=== PATIENT | female | born 1985 | race Caucasian/White ===

== ENCOUNTER 2023-03-28 08:22 | Outpatient (OUT) | payer OTHER, SELFPAY | END 2023-03-28 08:23 | disposition home or self-care (01) | LOC: VC 08:22 | PROVIDERS: Family Provider Family Medicine; PCP Radiology Diagnostic Radiology; Visit Provider Radiology Diagnostic Radiology | DX: I83.813 Varicose veins of bilateral lower extremities with pain (principal) ==

== ENCOUNTER 2023-04-11 07:27 | Outpatient (OUT) | payer OTHER, SELFPAY ==
--- NOTE | 2023-04-11 07:29 | VEIN_ITS ---
Patient: PRESLEY FONG Exam Date: 04/11/2023 : 1985 Gender:F Ordering : DR THIERNO BRAUN M.D. Admission #: [id number] Family : Order #: [id number] CLICK HERE TO VIEW EXAM RADIOLOGY REPORT PROCEDURE: VC EXT VENOUS REFLUX MANDIE LMTD COMPARISON: None. INDICATIONS: I83.813 Pain due to varicose veins of bilateral legs TECHNIQUE: Duplex imaging of the lower extremity to assess the deep and superficial venous system for the presence of deep or superficial venous incompetence and to document the location and severity of disease. The study includes evaluation of the great saphenous vein (GSV), anterior accessory saphenous vein (AASV) and small saphenous vein (SSV). Patient scanned in reverse Trendelenburg and standing. FINDINGS: RIGHT LOWER EXTREMITY: Saphenofemoral Junction Reflux: Yes 8.0mm 3.7 sec GSV: Diam (mm) Reflux/ Time (sec) Proximal Thigh 6.9 Yes 3.2 Mid Thigh 5.9 Yes 2.5 Distal Thigh 6.2 Yes 2.6 Prox Calf 4.0 Yes 2.6 Mid Calf 2.4 Yes 0.7 Saphenopopliteal Junction Reflux: 4.0mm No SSV: Proximal Calf 2.9 No Mid Calf 3.0 No AASV: Proximal Thigh 3.8 Yes 0.8 Mid Thigh 3.2 Yes 0.5 Distal Thigh Thrombi: No acute or chronic thrombus visualized Compressibility: Normal Flow: Normal Preforator: Dist/med calf 3.5mm with 1.1s reflux. Tech Note: Incompetent SFJ and GSV. Patent varicose vein mid/med calf 3.2mm with 0.8s reflux. Patent varicose vein dist/med thigh 3.4mm with 1.4s reflux. Patent varicose vein medial knee 4.6mm with 1.5s reflux. Patent varicose vein prox/med calf 5.2mm with 1.8s reflux. LEFT LOWER EXTREMITY: Saphenofemoral Junction Reflux: Yes 9.4 mm 3.7 sec GSV: Diam (mm) Reflux/Time (sec) Proximal Thigh 7.3 Yes 2.3 Mid Thigh 4.1 Yes 1.4 Distal Thigh 5.2 Yes 2.9 Prox Calf 5.4 Yes 2.0 Mid Calf 2.9 Yes 1.0 Saphenopopliteal Junction Relux: 3.5 mm No SSV: Proximal Calf 2.8 Yes 1.8 Mid Calf 1.9 AASV: Proximal Thigh 6.7 Yes 2.5 Mid Thigh 5.7 Yes 1.9 Distal Thigh Thrombi: No acute or chronic thrombus visualized Compressibility: Normal Flow: Normal Dental Professional: Dist/med calf 2.6mm with 1.9 s reflux. Tech Note: Incompetent SFJ, GSV, and AASV. Patent varicose vein mid/med thigh 3.9mm with 2.1s reflux. Patent varicose vein dist/med thigh 3.3mm with 1.1s reflux. CONCLUSION: 1. Moderate to severe bilateral great saphenous vein venous insufficiency with dilatation and saphenofemoral junction reflux 2. Mild right and moderate left anterior accessory saphenous vein venous insufficiency with dilatation 3. Small bilateral incompetent perforating veins 4. Bilateral incompetent varicose veins Dictated by: Thierno Braun MD on 04/11/2023 at 08:38 Approved by: Thierno Braun MD on 04/11/2023 at 08:40
--- NOTE | 2023-04-11 07:29 | VEIN_ITS ---
Patient: PRESLEY FONG Exam Date: 04/11/2023 : 1985 Gender:F Ordering : DR THIERNO BRAUN M.D. Admission #: [id number] Family : Order #: [id number] CLICK HERE TO VIEW EXAM RADIOLOGY REPORT PROCEDURE: FACILITY [facility] - OFFICE VISIT INITIAL COMPARISON: None. PROGRESS NOTES: 37 year old female who presents with an 18 year history of lower extremity pain swelling and varicose veins. The patient complains of bulging dilated discolored leg veins with swelling and subcutaneous edema. The patient's left side is worse than the right. The patient describes the pain as heaviness dull and itching and rates the pain as 3 on a scale of 1-10. 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 The patient's symptoms are partially relieved by rest, leg elevation, compression stockings and over the counter ibuprofen. The patient denies any signs and symptoms to suggest arterial ischemia. The patient describes a family history significant for varicose veins in both grandmothers, father and sister. Heart problems in both parents. Cancer in a paternal grandmother. The patient has never smoked. Occasional social alcohol use. No illicit drug use. No known drug allergies. Patient's past surgical history is significant for mole removal, oral surgery right foot surgery. . No history of deep venous thrombus or pulmonary embolus. See separate history and physical for medication list. No prior treatment for varicose or spider veins. The patient has worn compression stockings for many years. Rib nursing notes were reviewed. The patient has worn compression stockings for several years. Nursing notes were reviewed. After history and physical exam I discussed at length the pathophysiology of venous hypertension and possible treatments, therapies and strategies available. We discussed at length the importance of elevating the lower extremities above the level of the heart, increased physical activity and compression stocking use. We discussed conservative therapy with compression stockings. Surgical intervention including ligation and stripping and phlebectomy. We discussed intravenous laser ablation, micro foam chemical ablation and injection sclerotherapy at length. Risk benefits and alternatives were discussed Ultrasound venous reflux study performed the same day was discussed at length with the patient. The report demonstrates moderate to severe bilateral great saphenous vein venous insufficiency. Mild right and moderate left anterior accessory saphenous vein venous insufficiency. Mild to moderate left small saphenous vein venous insufficiency. Bilateral incompetent varicose and perforating veins PHYSICAL EXAM: The right leg demonstrates mild scattered varicose, extensive reticular and spider veins. Mild subcutaneous edema of the ankle. No hemosiderin staining. The left leg demonstrates mild scattered varicose, extensive reticular and spider veins. Mild subcutaneous edema of the ankle. No hemosiderin staining. Both thighs, legs and feet were symmetrically warm to the touch. Good posterior tibial and dorsalis pedis pulses were present bilaterally. IMPRESSION: 1. Bilateral great saphenous, anterior accessory saphenous and left small saphenous venous insufficiency with associated dilatation period bilateral saphenofemoral junction reflux 2. Bilateral lower extremity incompetent varicose veins 3. Mild bilateral ankle subcutaneous edema 4. No definite flow significant arterial disease 5. CEAP: C3, Ep, As, Pr PLAN: 1. Endovenous laser ablation r left ght great saphenous vein followed by right great saphenous vein followed by left anterior accessory saphenous vein 2. Micro foam chemical ablation bilateral incompetent branch saphenous varicose veins 3. Bilateral injection sclerotherapy of reticular and spider veins 4. Long-term use of bilateral knee and or 20-30 mm compression stockings 5. Elevated legs and increased physical activity for symptomatic relief Nurse notes, history and physical were reviewed and confirmed, see attached forms. The nurse was present throughout the physical exam and consultation Dictated by: Thierno Braun MD on 04/11/2023 at 12:28 Approved by: Thierno Braun MD on 04/11/2023 at 12:41
== END 2023-04-11 07:28 | disposition home or self-care (01) ==
LOC: VC 07:27
PROVIDERS: Family Provider Family Medicine; PCP Radiology Diagnostic Radiology; Visit Provider Radiology Diagnostic Radiology
DX: I83.813 Varicose veins of bilateral lower extremities with pain (principal)
CPT/HCPCS: 93970; G0463

== ENCOUNTER 2023-07-23 10:09 | Outpatient (OUT) | payer OTHER, SELFPAY ==
[2023-07-29 09:08] LABS: Age Gdln ACOG Testing Note (.); HPV Aptima Negative (Negative); IGP, Aptima HPV, rfx 16/18,45 Note (.)
== END 2023-07-23 10:10 | disposition home or self-care (01) ==
LOC: LAB 07-24 10:14
PROVIDERS: Family Provider Family Medicine; PCP Radiology Diagnostic Radiology; Visit Provider Physician Assistant
DX: Z01.419 Encounter for gynecological examination (general) (routine) without abnormal findings (principal)
CPT/HCPCS: 87624; G0145

== ENCOUNTER 2024-01-12 07:56 | Outpatient (OUT) | payer OTHER, SELFPAY ==
--- NOTE | 2024-01-12 07:59 | MM_ITS ---
Patient Name: PRESLEY FONG MR#: [id number] : 1985 Exam Date: 01/12/2024 Ordering Doctor: DR Tato Harding . RADIOLOGY REPORT PROCEDURE: MM TOMOSYNTHESIS SCREENING BI COMPARISON: MG MAMM SCREEN 3D MANDIE CAD, 01/01/2022. MG MAMM SCREEN 3D MANDIE CAD, 01/10/2023. INDICATIONS: Screening for malignant neoplasm Calculator Name NCI Breast Cancer Risk Assessment Tool 5 Year Breast Cancer Risk 0.60% Lifetime Breast Cancer Risk 11.10% Personal Breast Cancer No Personal Ovarian Cancer No Treatments None Family Cancers Aunt-maternal with breast cancer at age ~38. LOCATION: [facility] BREAST COMPOSITION: Scattered areas fibroglandular density. FINDINGS: DIAGNOSTIC CATEGORY 1--NEGATIVE. NO CHANGE FROM COMPARISON ASSESSMENT. Scattered benign-appearing lymph nodes are present. RIGHT BREAST: No significant suspicious finding. LEFT BREAST: No significant suspicious finding. RECOMMENDATIONS: ROUTINE MAMMOGRAM AND CLINICAL EVALUATION IN 12 MONTHS. PLEASE NOTE: A NORMAL MAMMOGRAM DOES NOT EXCLUDE THE POSSIBILITY OF BREAST CANCER. A CLINICALLY SUSPICIOUS PALPABLE LUMP SHOULD BE BIOPSIED. Dictated by: Thierno Braun MD on 01/13/2024 at 07:37 Approved by: Thierno Braun MD on 01/13/2024 at 07:38
--- OUTSIDE RECORDS SUMMARY | 2024-01-12 07:59 | XMS_ITS | CCD ---
Author Organization [facility] Care Team Providers Care Web Content Executive Name Role Phone Montana Gill MD Primary Care Provider FLAVIO AMAYA Referring Unavailable MONTANA GILL Primary Care Unavailable MONTANA GILL Primary Care Unavailable JASON TOLEDO Referring Unavailable MONTANA GILL Primary Care Unavailable FLAVIO AMAYA Admitting Unavailable FLAVIO AMAYA Attending Unavailable MONTANA GILL Primary Care Unavailable KARASIK ., DR TADEO Admitting Unavailabl e KARASIK ., DR TADEO Attending Unavailabl e MISC, DR RODRIGUEZ Primary Care Unavailable KARASIK ., DR TADEO Consulting Unavailabl e KARASIK ., DR TDAEO Admitting Unavailabl e KARASIK ., DR TADEO Attending Unavailabl e MISC, DR RODRIGUEZ Primary Care Unavailable KARASIK ., DR TADEO Consulting Unavailabl e ZiebJd bae Consulting Unavailable GILL, DR SHEPARD Consulting Unavailable Medications Current Medications Medication Drug Class(es) Dates Sig (Normalized) Sig (Original) calcium chloride 0.0014 meq/ml / potassium chloride 0.004 meq/ml / sodium chloride 0.103 meq/ml / sodium lactate 0.028 meq/ml injectable solution (1 source) Start: 05-27-2022 lactated ringers infusion escitalopram 10 mg oral tablet (3 sources) Serotonin Reuptake Inhibitor take 1 tablet by mouth once daily escitalopram (LEXAPRO) 10 MG tablet Take 10 mg by mouth daily 0 Active Norethin-Eth Estrad Triphasic (NORTREL PO) (3 sources) Norethin-Eth Est rad Triphasic (NORTREL PO) Take by mouth 0 Active 5 ml sodium chloride 9 mg/ml injection (2 sources) Start: 05-27-2022 sodium chloride flush 0.9 % injection 5-40 mL Start: 05-27-2022 sodium chlorid e flush 0.9 % injection 5-40 mL Completed/Discontinued Medications Medication Drug Class(es) Dates Sig (Normalized) Sig (Original) acetaminophen 325 mg / HYDROcodone bitartrate 5 mg oral tablet (1 source) Opioid Agonist Start: 05-27-2022 End: 05-27-2022 HYDROcodone-acetam inophen (NORCO) 5-325 MG per tablet 2 tablet Start: 05-27-2022 End: 05-27-2022 HYDROcodone-acetaminophen (N ORCO) 5-325 MG per tablet 2 tablet ceFAZolin 2000 mg injection (1 source) Cephalosporin Antibacterial Start: 05-27-2022 End: 05-27-2022 ceFAZolin (ANCEF) 2000 mg in dextrose 3 % 50 mL IVPB (duplex) traMADol hydrochloride 50 mg oral tablet (2 sources) Opioid Agonist Start: 05-23-2022 End: 05-26-2022 traMADol (ULTRAM) 50 MG tablet Indications: Closed fracture of right foot, initial encounter Take 1 tablet by mouth every 6 hours as needed for Pain for up to 3 days. Intended supply: 5 days. Take lowest dose possible to manage pain 12 tablet 0 05/23/2022 05/24/2022 Discontinued (Therapy completed) Problems Active Problems Problem Classification Problem Date Documented Da te Episodic/Chronic Fracture of lower limb (1 source) Closed fracture of right foot; Translations: [Unspecified fracture of right foot, initial encounter for closed fracture] Episodic Other screening for suspected conditions (not mental disorders or infectious disease) (8 sources) Encounter for screening mammogram for malignant neoplasm of breast; Translations: [Encounter for screening for malignant neoplasm of cervix] Onset: 05-10-2022 Episodic Residual codes; unclassified (1 source) Family history of malignant neoplasm of breast; Translations: [FAMILY HX MALIG NEOPLASM OF BREAST] Onset: 01-19-2023 Episodic Past or Other Problems Problem Classification Problem Date Documented Date Episodic/Chronic Immunizations and screening for infectious disease (1 source) Encounter for screening for human papillomavirus (HPV); Translations: [ENC SCREENING HUMAN PAPILLOMAVIRUS] Onset: 05-12-2022 Episodic Results Test Name Value Interpretation Reference Range Facility MG MAMM SCREEN 3D MANDIE CADon 01-10-2023 MG MAMM SCREEN 3D MANDIE CAD Patient: PRESLEY FONG Exam Date: 01/10/2023 : 1985 Gender:F Ordering : DR SHWETHA VILLA . Admission #: [id number] Family : Order #: [id number] CLICK HERE TO VIEW EXAM RADIOLOGY REPORT PROCEDURE: MAMMOGRAM SCREENING 3D BILATERAL CAD COMPARISON: MG MAMM SCREEN MANDIE W CAD, 11/01/2020. MG MAMM SCREEN 3D MANDIE CAD, 01/01/2022. INDICATIONS: Screening mammography Calculator Name NCI Breast Cancer Risk Assessment Tool 5 Year Breast Cancer Risk 0.60% Lifetime Breast Cancer Risk 11.10% Personal Breast Cancer No Personal Ovarian Cancer No Treatments None Family Cancers Aunt-maternal with breast cancer at age 38. LOCATION: [facility] BREAST COMPOSITION: Scattered areas fibroglandular density. FINDINGS: DIAGNOSTIC CATEGORY 1--NEGATIVE. RIGHT BREAST: No significant suspicious finding. No significant change has occurred. LEFT BREAST: No significant suspicious finding. No significant change has occurred. RECOMMENDATIONS: ROUTINE MAMMOGRAM AND CLINICAL EVALUATION IN 12 MONTHS. PLEASE NOTE: A NORMAL MAMMOGRAM DOES NOT EXCLUDE THE POSSIBILITY OF BREAST CANCER. A CLINICALLY SUSPICIOUS PALPABLE LUMP SHOULD BE BIOPSIED. Dictated by: Jd Garcia M.D. on 01/10/2023 at 14:53 Approved by: Jd Garcia M.D. on 01/10/2023 at 14:55 Normal [facility] FL LESS THAN 1 HOURon 2021 FL LESS THAN 1 HOUR EXAMINATION: FL LESS THAN 1 HOUR HISTORY: Reason for exam:->ORIF RIGHT FIFTH METATARSAL COMPARISON: None. FLUOROSCOPY TIME: Fluoro time measures 8 seconds and 2 spot images were obtained. TECHNIQUE: Fluoroscopy with spot films. FINDINGS: Images demonstrate a percutaneous pin placed through the fifth metatarsal with 2 cerclage wires around the fifth metatarsal shaft. Anatomic alignment. IMPRESSION: Fluoroscopy during internal fixation right fifth metatarsal. Interpreted by: Edgardo Han Jr., MD Signed by: Edgardo Han Jr., MD 05/27/22 Final result Normal [facility] Fluoroscopy during internal fixation right fifth metatarsal. [facility] RIS CONSOLIDATED EXAMINATION: FL LESS THAN 1 HOUR HISTORY: Reason for exam:->ORIF RIGHT FIFTH METATARSAL COMPARISON: None. FLUOROSCOPY TIME: Fluoro time measures 8 seconds and 2 spot images were obtained. TECHNIQUE: Fluoroscopy with spot films. FINDINGS: Images demonstrate a percutaneous pin placed through the fifth metatarsal with 2 cerclage wires around the fifth metatarsal shaft. Anatomic alignment. [facility] Edgardo Han Jr., MD - 05/27/2022 EXAMINATION: FL LESS THAN 1 HOUR HISTORY: Reason for exam:->ORIF RIGHT FIFTH METATARSAL COMPARISON: None. FLUOROSCOPY TIME: Fluoro time measures 8 seconds and 2 spot images were obtained. TECHNIQUE: Fluoroscopy with spot films. FINDINGS: Images demonstrate a percutaneous pin placed through the fifth metatarsal with 2 cerclage wires around the fifth metatarsal shaft. Anatomic alignment. IMPRESSION: Fluoroscopy during internal fixation right fifth metatarsal. On[employer] Phone: Radiology Study observation (narrative) OnSwipe Phone: [place] LESS THAN 1 HOUROrdered B y: Edgardo Han on 05-27-2022 [employer] Phone: HCG, ,Urineon 05-27 Beta HCG ( test) Ql (U) Negative Normal NEG [facility] Comment on above: Performed By: #### U HCG #### [facility] [address] [place] [address] Customer Acquisition Manager: Thierno Linton MD , Urineon 2 Beta HCG ( test) Ql (U) Negative NEGATIVE [facility] [employer] [id number] 05-27-2022 SARS-CoV-2 (COVID-19) RNA GERARDO+probe Ql (Unsp spec) Not detected Normal NOTDET [facility] Comment on above: Result Comment: Rapid NAAT: The specimen is NEGATIVE for SARS-CoV-2, the novel coronavirus associated with COVID-19. The ID NOW COVID-19 assay is designed to detect the virus that causes COVID-19 in patients with signs and symptoms of infection who are suspected of COVID-19. An individual without symptoms of COVID-19 and who is not shedding SARS-CoV-2 virus would expect to have a negative (not detected) result in this assay. Negative results should be treated as presumptive and, if inconsistent with clinical signs and symptoms or necessary for patient management, should be tested with an alternative molecular assay. Negative results do not preclude SARS-CoV-2 infection and should not be used as the sole basis for patient management decisions. Fact sheet for Healthcare Providers: https://www.fda.gov/media/100921/download Fact sheet for Patients: https://www.fda.gov/media/585438/download Methodology: Isothermal Nucleic Acid Amplification Performed By: #### C OVRB #### [facility] [address] [place] [address] Customer Acquisition Manager: Thierno Linton MD Basic Metabolic Panelon 05-06 Anion gap [Moles/Vol] 10 mmol/L 9 - 17 mmol/L [facility] Calcium [Mass/Vol] 10.0 mg/dL 8.6 - 10. 4 mg/dL [facility] Chloride [Moles/Vol] 103 mmol/L 98 - 107 mmol/L [facility] CO2 [Moles/Vol] 25 mmol/L 20 - 31 mmol/L [facility] Creatinine [Mass/Vol] 0.64 mg/dL 0.5 - 0.9 mg/dL [facility] GFR >60 60 - PINF mL/min [facility] GFR Non- >60 60 - PINF mL/min [facility] Glucose [Mass/Vol] 92 mg/dL 70 - 99 mg/dL [facility] Potassium [Moles/Vol] 4.8 mmol/L 3.7 - 5.3 mmol/L [facility] Sodium [Moles/Vol] 138 mmol/L 135 - 144 mmol/L [facility] Urea nitrogen (BldV) [Mass/Vol] 13 mg/dL 6 - 20 mg/dL [facility] Urea nitrogen/Creatinine (Bld) [Mass ratio] 20 9 - 20 [facility] Basic Metabolic Profon 05-24 (cont.) Normal [facility] Comment on above: Result Comment: Aver age GFR for 30-39 years old: 107 mL/min/1.73sq m Chronic Kidney Disease: <60 mL/min/1.73sq m Kidney failure: <15 mL/min/1.73sq m eGFR calculated using average adult body mass. Additional eGFR calculator available at: http://www.[employer]/multiple_crcl_2012.htm Performed By: #### B SHARDA CDP, IPF #### [facility] [address] [place], [place] [id number] Customer Acquisition Manager: Thierno Linton MD Anion gap [Moles/Vol] 10 mmol/L Normal 9-17 [facility] Comment on above: Performed By: #### B SHARDA, CDP, IPF #### [facility] [address] [place], [place] [id number] Customer Acquisition Manager: Thierno Linton MD BUN/CRE Ratio 20 Normal 9-20 [facility] Comment on above: Performed By: #### B JACINDA ROBIN, IPF #### [facility] [address] [place] [address] [address] [place], [place] [id number] Customer Acquisition Manager: Thierno Linton MD Calcium [Mass/Vol] 10.0 mg/dL Normal 8.6-10.4 [facility] Comment on above: Performed By: #### B JACINDA ROBIN, IPF #### [address] [place], [place] [phone] Customer Acquisition Manager: Thierno Linton MD Chloride [Moles/Vol] 103 mmol/L Normal 98-107 [facility] Comment on above: Performed By: #### B SHARDA, CDP, IPF #### [facility] [address] [place], [place] [address] Customer Acquisition Manager: Thierno Linton MD CO2 [Moles/Vol] 25 mmol/L Normal 20-31 [facility] Comment on above: Performed By: #### B SHARDA, CDP, IPF #### [facility] [address] [place] [address] Customer Acquisition Manager: Thierno Linton MD Creatinine [Mass/Vol] 0.64 mg/dL Normal 0.50-0.90 [facility] Comment on above: Performed By: #### B SHARDA, CDP, IPF #### [facility] [address] [place], [place] [id number] Customer Acquisition Manager: Thierno Linton MD GFR, Amer >60 Normal >60 [facility] Comment on above: Performed By: #### B MP, CDP, IPF #### [facility] [address] [place], [place] [phone] Customer Acquisition Manager: Thierno Linton MD GFR,non Amer >60 Normal >60 [facility] Comment on above: Performed By: #### B SHARDA CDP, IPF #### [facility] [address] [place], [place] [address] Customer Acquisition Manager: Thierno Linton MD Glucose [Mass/Vol] 92 mg/dL Normal 70-99 [facility] Comment on above: Performed By: #### B SHARDA CDP, IPF #### [facility] [address] [place], [place] [phone] Customer Acquisition Manager: Thierno Linton MD Potassium [Moles/Vol] 4.8 mmol/L Normal 3.7-5.3 [facility] Comment on above: Performed By: #### B JACINDA ROBIN, IPF #### [facility] [address] [place], [place] [phone] Customer Acquisition Manager: Thierno Linton MD Sodium [Moles/Vol] 138 mmol/L Normal 135-144 [facility] Comment on above: Performed By: #### B SHARDA CDP, IPF #### [facility] [address] [place] [address] Customer Acquisition Manager: Thierno Linton MD Staging: Normal [facility] Comment on above: Result Comment: Stag e 1: Some kidney damage normal GFR Stage 2: Mild kidney damage GFR 60-89 Stage 3: Moderate kidney damage GFR 30-59 Stage 4: Severe kidney damage GFR 15-29 Stage 5: Severe kidney damage GFR <15 ESRD - chronic treatment by dialysis or transplant Performed By: #### B JACINDA ROBIN, IPF #### [facility] [address] [place] [address] Customer Acquisition Manager: Thierno Linton MD Urea nitrogen [Mass/Vol] 13 mg/dL Normal 6-20 [facility] Comment on above: Performed By: #### B JACINDA ROBIN, IPF #### [facility] [address] [place] [address] Customer Acquisition Manager: Thierno Linton MD CBC with Auto Differentialon 05-24-2022 Absolute Eos # 0.11 [facility] Absolute Immature Granulocyte 0.00 [facility] Absolute Lymph # 1.54 [facility] Absolute [place] # 0.51 [facility] Basophils (Bld) [#/Vol] 0.06 10*3/uL [facility] Basophils/100 WBC (Bld) 1 % 0 - 2 % [facility] Eosinophils/100 WBC (Bld) 2 % 1 - 4 % [facility] Hematocrit (Bld) [Volume fraction] 44.4 % 36.3 - 47.1 % [facility] Hemoglobin (Bld) [Mass/Vol] 14.3 g/dL 11.9 - 15.1 g/dL [facility] Immature granulocytes/100 WBC (Bld) 0 % 0 [facility] Lymphocytes/100 WBC (Bld) 27 % 24 - 43 % [facility] MCH (RBC) [Entitic mass] 30.3 pg 25.2 - 33.5 pg [facility] MCHC (RBC) [Mass/Vol] 32.2 g/dL 28.4 - 34.8 g/dL [facility] MCV (RBC) [Entitic vol] 94.1 fL 82.6 - 102.9 fL [facility] Monocytes/100 WBC (Bld) 9 % 3 - 12 % [facility] Morphology Nick (Bld) [Interp] Platelet scan shows Normal Platelets [facility] NRBC Automated 0.0 0.0 per 100 WBC [facility] Platelet distribution width (Bld) [Ratio] 12.2 % 11.8 - 14.4 % [facility] Platelets (Bld) [#/Vol] See Reflexed IPF Result [facility] RBC (Bld) [#/Vol] 4.72 10*6/uL 3.95 - 5.1 1 m/uL [facility] Segmented neutrophils/100 WBC (Bld) 61 % 36 - 65 % [facility] Segs Absolute 3.48 [facility] WBC (Bld) [#/Vol] 5.7 10*3/uL [facility] CBC with Diffon 05-24-2022 Abs. Basophil 0.06 k/uL Normal 0.0-0.2 [facility] Comment on above: Performed By: #### B JACINDA ROBIN, IPF #### [facility] [address] [place], [facility]83 Customer Acquisition Manager: Thierno Linton MD Abs.Imm.Granulocyte 0.00 k/uL Normal 0.00-0.30 [facility] Comment on above: Performed By: #### B SHARDA CDP, IPF #### [address] [place], [facility]83 Customer Acquisition Manager: Thierno Linton MD Abs.Neutrophil (Seg) 3.48 k/uL Normal 1.50-8.10 [facility] Comment on above: Performed By: #### B MP, CDP, IPF #### [facility] [address] [place], [place] [phone] Customer Acquisition Manager: Thierno Linton MD Basophils/100 WBC (Bld) 1 % Normal 0-2 [facility] Comment on above: Performed By: #### B MP, CDP, IPF #### [facility] [address] [place] [address] Customer Acquisition Manager: Thierno Linton MD Eosinophils (Bld) [#/Vol] 0.11 10*3/uL Normal 0.00-0.44 [facility] Comment on above: Performed By: #### B MP, CDP, IPF #### [facility] [address] [place], [place] [phone] Customer Acquisition Manager: Thierno Linton MD Eosinophils/100 WBC (Bld) 2 % Normal 1-4 [facility] Comment on above: Performed By: #### B MP, CDP, IPF #### [facility] [address] [place], [place] [phone] Customer Acquisition Manager: Thierno Linton MD Immature granulocytes/100 WBC (Bld) 0 % Normal 0 [facility] Comment on above: Performed By: #### B MP, CDP, IPF #### [facility] [address] [place], [place] [phone] Customer Acquisition Manager: Thierno Linton MD Lymphocytes (Bld) [#/Vol] 1.54 10*3/uL Normal 1.10-3.70 [facility] Comment on above: Performed By: #### B SHARDA, CDP, IPF #### [facility] [address] [place], [place] [phone] Customer Acquisition Manager: Thierno Linton MD Lymphocytes/100 WBC (Bld) 27 % Normal 24-43 [facility] Comment on above: Performed By: #### B SHARDA, CDP, IPF #### [facility] [address] [place], [place] [phone] Customer Acquisition Manager: Thierno Linton MD Monocytes (Bld) [#/Vol] 0.51 10*3/uL Normal 0.10-1.20 [facility] Comment on above: Performed By: #### B MP, CDP, IPF #### [facility] [address] [place] [address] Customer Acquisition Manager: Thierno Linton MD Monocytes/100 WBC (Bld) 9 % Normal 3-12 [facility] Comment on above: Performed By: #### B MP, CDP, IPF #### [facility] [address] [place], [place] [phone] Customer Acquisition Manager: Thierno Linton MD Morphology Nick (Bld) [Interp] Platelet scan shows Normal Platelets Normal [facility] Comment on above: Performed By: #### B MP, CDP, IPF #### [facility] [address] [place], [facility]83 Customer Acquisition Manager: Thierno Linton MD Neutrophil (Seg) 61 % Normal 36-65 [facility] Comment on above: Performed By: #### B SHARDA, CDP, IPF #### [facility] [address] [place], [facility]83 Customer Acquisition Manager: Thierno Linton MD Erythrocyte distribution width (RBC) [Ratio] 12.2 % Normal 11.8-14.4 [facility] Comment on above: Performed By: #### B SHARDA CDP, IPF #### [facility] [address] [place], [facility]83 Customer Acquisition Manager: Thierno Linton MD Hematocrit (Bld) [Volume fraction] 44.4 % Normal 36.3-47.1 [facility] Comment on above: Performed By: #### B SHARDA CDP, IPF #### [facility] [address] [place], [facility]83 Customer Acquisition Manager: Thierno Linton MD Hemoglobin (Bld) [Mass/Vol] 14.3 g/dL Normal 11.9-15.1 [facility] Comment on above: Performed By: #### B MP, CDP, IPF #### [facility] [address] [place] [address] Customer Acquisition Manager: Thierno Linton MD MCH (RBC) [Entitic mass] 30.3 pg Normal 25.2-33.5 [facility] Comment on above: Performed By: #### B MP, CDP, IPF #### [facility] [address] [place] [address] Customer Acquisition Manager: Thierno Linton MD MCHC (RBC) [Mass/Vol] 32.2 g/dL Normal 28.4-34.8 [facility] Comment on above: Performed By: #### B MP, CDP, IPF #### [facility] [address] [place], [place] [phone] Customer Acquisition Manager: Thierno Linton MD MCV (RBC) [Entitic vol] 94.1 fL Normal 82.6-102.9 [facility] Comment on above: Performed By: #### B MP, CDP, IPF #### [address] [place], [place] [address] Customer Acquisition Manager: Thierno Linton MD NRBC Automated 0.0 per 100 WBC Normal 0.0 [facility] Comment on above: Performed By: #### B MP, CDP, IPF #### [address] [place], [place] [phone] Customer Acquisition Manager: Thierno Linton MD Platelet Count See Reflexed IPF Result Normal 138-453 [facility] Comment on above: Performed By: #### B MP, CDP, IPF #### [address] [place], [place] [phone] Customer Acquisition Manager: Thierno Linton MD RBC (Bld) [#/Vol] 4.72 10*6/uL Normal 3.95-5.11 [facility] Comment on above: Performed By: #### B MP, CDP, IPF #### [facility] [address] [place] [address] Customer Acquisition Manager: Thierno Linton MD WBC (Bld) [#/Vol] 5.7 10*3/uL Normal 3.5-11.3 [facility] Comment on above: Performed By: #### B MP, CDP, IPF #### [address] [place] [address] Customer Acquisition Manager: Thierno Linton MD Immature Platelet Fractionon 05-24-2022 Platelet, Fluorescence 227 [facility] Platelet, Immature Fraction 7.5 % 1.1 - 10.3 % [facility] Laboratory - Chemistry and C hemistry - challengeon 05-24-2022 GFR/1.73 sq M.predicted MDRD (S/P/Bld) [Vol rate/Area] [facility] Comment on above: Average GFR for 30-3 9 years old: 107 mL/min/1.73sq m Chronic Kidney Disease: <60 mL/min/1.73sq m Kidney failure: <15 mL/min/1.73sq m eGFR calculated using average adult body mass. Additional eGFR calculator available at: http://www.[employer]/multiple_crcl_2012.htm Stage 1: Some kidney damage normal GFR Stage 2: Mild kidney damage GFR 60-89 Stage 3: Moderate kidney damage GFR 30-59 Stage 4: Severe kidney damage GFR 15-29 Stage 5: Severe kidney damage GFR <15 ESRD - chronic treatment by dialysis or transplant PLT, Immature Fract.on 05-24 Platelet, Fluoresc. 227 k/uL Normal 138-453 [facility] Comment on above: Performed By: #### B JACINDA ROBIN, IPF #### [facility] [address] [place] [address] [place] [address] Customer Acquisition Manager: Thierno Linton MD PLT, Immature Fract. 7.5 % Normal 1.1-10.3 [facility] Comment on above: Performed By: #### B JACINDA ROBIN, IPF #### [facility] [address] [place] [address] Customer Acquisition Manager: Thierno Linton MD XR ANKLE RIGHT (MIN 3 VIEWS) on 05-23-2022 XR ANKLE RIGHT (MIN 3 VIEWS) EXAMINATION: THREE XRAY VIEWS OF THE RIGHT ANKLE 05/23/2022 10:16 am COMPARISON: None. HISTORY: ORDERING SYSTEM PROVIDED HISTORY: fall TECHNOLOGIST PROVIDED HISTORY: fall FINDINGS: There is no acute osseous abnormality. The joint spaces are maintained. The surrounding soft tissues are unremarkable. IMPRESSION: No acute osseous or soft tissue abnormality. Interpreted by: Jagdish Cm MD Signed by: Jagdish Cm MD 05/23/22 Final result Normal [facility] No acute osseous or soft tissue abnormality. [facility] CONSOLIDATED EXAMINATION: THREE XRAY VIEWS OF THE RIGHT ANKLE 05/23/2022 10:16 am COMPARISON: None. HISTORY: ORDERING SYSTEM PROVIDED HISTORY: fall TECHNOLOGIST PROVIDED HISTORY: fall FINDINGS: There is no acute osseous abnormality. The joint spaces are maintained. The surrounding soft tissues are unremarkable. [facility] Jagdish Cm MD - 05/23/2022 EXAMINATION: THREE XRAY VIEWS OF THE RIGHT ANKLE 05/23/2022 10:16 am COMPARISON: None. HISTORY: ORDERING SYSTEM PROVIDED HISTORY: fall TECHNOLOGIST PROVIDED HISTORY: fall FINDINGS: There is no acute osseous abnormality. The joint spaces are maintained. The surrounding soft tissues are unremarkable. IMPRESSION: No acute osseous or soft tissue abnormality. [employer] Phone: Radiology Study observation (narrative) [employer] Phone: XR ANKLE RIGHT (MIN 3 VIEWS) Ordered By: Jagdish Cm on 05-23-2022 [employer] Phone: XR FOOT RIGHT (MIN 3 VIEWS)o n 05-23-2022 XR FOOT RIGHT (MIN 3 VIEWS) EXAMINATION: THREE XRAY VIEWS OF THE RIGHT FOOT 05/23/2022 10:16 am COMPARISON: None. HISTORY: ORDERING SYSTEM PROVIDED HISTORY: fall TECHNOLOGIST PROVIDED HISTORY: fall FINDINGS: There is an oblique fracture of the 5th metatarsal. The joint spaces are maintained. There is diffuse soft tissue swelling. IMPRESSION: Oblique fracture of the 5th metatarsal. Interpreted by: Jagdish Cm MD Signed by: Jagdish Cm MD 05/23/22 Final result Normal [facility] Oblique fracture of the 5th metatarsal. [facility] EXAMINATION: THREE XRAY VIEWS OF THE RIGHT FOOT 05/23/2022 10:16 am COMPARISON: None. HISTORY: ORDERING SYSTEM PROVIDED HISTORY: fall TECHNOLOGIST PROVIDED HISTORY: fall FINDINGS: There is an oblique fracture of the 5th metatarsal. The joint spaces are maintained. There is diffuse soft tissue swelling. PN Jagdish Holland MD - 05/23/2022 EXAMINATION: THREE XRAY VIEWS OF THE RIGHT FOOT 05/23/2022 10:16 am COMPARISON: None. HISTORY: ORDERING SYSTEM PROVIDED HISTORY: fall TECHNOLOGIST PROVIDED HISTORY: fall FINDINGS: There is an oblique fracture of the 5th metatarsal. The joint spaces are maintained. There is diffuse soft tissue swelling. IMPRESSION: Oblique fracture of the 5th metatarsal. On[employer] Phone: [employer] Phone: Radiology Study observation (narrative) [employer] Phone: PAP ACOG PANEL 2: 30 to 65on 05-14-2022 . . Normal [facility] Comment on above: Result Comment: Perf ormed at: WB Performed By: #### [id number] #### [facility] [address] [place] [address] Dr. Mara Gordon Age Gdln ACOG Testing 30-65 Normal [facility] Comment on above: Performed By: #### [id number] #### [facility] [address] [address] [address] Mara Gordon DIAGNOSIS: Comment Normal [facility] Comment on above: Result Comment: NEGA TIVE FOR INTRAEPITHELIAL LESION OR MALIGNANCY. Performed at: WB Performed By: #### [id number] #### [facility] [address] [address] [address] Mara Gordon HPV Aptima Negative Normal Negative [facility] Comment on above: Result Comment: This nucleic acid amplification test detects fourteen high-risk HPV types (16,18,31,33,35,39,45,51,52,56,58,59,66,68) without differentiation. Performed at: =G Performed By: #### [id number] #### [facility] [address] [address] [address] Mara Gordon Methodology: Comment Normal [facility] Comment on above: Result Comment: This liquid based ThinPrep(R) pap test was screened with the use of an image guided system. Performed at: WB Performed By: #### [id number] #### [facility] [address] [place] [address] Dr. Mara Gordon Note: Comment Normal [facility] Comment on above: Result Comment: The Pap smear is a screening test designed to aid in the detection of premalignant and malignant conditions of the uterine cervix. It is not a diagnostic procedure and should not be used as the sole means of detecting cervical cancer. Both false-positive and false-negative reports do occur. . Performed at: WB Performed By: #### [id number] #### [facility] [address] [place] [address] Dr. Mara Gordon Performed by: Comment Normal [facility] Comment on above: Result Comment: Sunita Cheatham Circular Saw Operator (ASCP) Performed at: WB Performed By: #### [id number] #### [facility] [address] [place] [address] Dr. Mara Gordon Specimen adequacy: Comment Normal [facility] Comment on above: Result Comment: Sati sfactory for evaluation. Endocervical and/or squamous metaplastic cells (endocervical component) are present. Performed at: WB Performed By: #### [id number] #### [facility] [address] [place] [address] Dr. Mara Gordon Vital Signs Date Time Vital Sign Value Performing Clinician Faci lity 05-27-2022 18:15-0400 Diastolic blood pressure 75 mm[Hg] Flavio Amaya DPM Work Phone: [facility] 05-27-2022 18:15-0400 Heart rate 78 /min Flavio Amaya DPM Work Phone: [facility] 05-27-2022 18:15-0400 Respiratory rate 8 /min Flavio Amaya DPM Work Phone: [facility] 05-27-2022 18:15-0400 SaO2% (BldA) [Mass fraction] 93 % Flavio Amaya DPM Work Phone: [facility] 05-27-2022 18:15-0400 Systolic blood pressure 126 mm[Hg] Flavio Amaya DPM Work Phone: [facility] 05-27-2022 17:45-0400 Body temperature 98.01 [degF] Flavio Amaya DPM Work Phone: [facility] [place] 05-27-2022 14:38-0400 Body height 170.2 cm Flavio Amaya DPM Work Phone: [facility] [place] 05-27-2022 14:38-0400 Body mass index (BMI) [Ratio] 33.36 kg/m2 Flavio Amaya DPM Work Phone: [facility] [place] 05-27-2022 14:38-0400 Body weight 96.62 kg Flavio Amaya DPM Work Phone: [facility] [place] 05-23-2022 10:02-0400 Body height 170.2 cm Montana Gill MD Work Phone: [facility] [place] 05-23-2022 10:02-0400 Body mass index (BMI) [Ratio] 31.32 kg/m2 Montana Gill MD Work Phone: [facility] [place] 05-23-2022 10:02-0400 Body temperature 96.8 [degF] Montana Gill MD Work Phone: [facility] [place] 05-23-2022 10:02-0400 Body weight 90.72 kg Montana Gill MD Work Phone: [facility] [place] 05-23-2022 10:02-0400 Diastolic blood pressure 99 mm[Hg] Montana Gill MD Work Phone: [facility] [place] 05-23-2022 10:02-0400 Heart rate 83 /min Montana Gill MD Work Phone: [facility] [place] 05-23-2022 10:02-0400 Respiratory rate 16 /min Montana Gill MD Work Phone: [facility] 05-23-2022 10:02-0400 SaO2% (BldA) [Mass fraction] 100 % Montana Gill MD Work Phone: [facility] 05-23-2022 10:02-0400 Systolic blood pressure 143 mm[Hg] Montana Gill MD Work Phone: [facility] Encounters Encounter Date Encounter Type Care Provider Facility Start: 01-10-2023 End: 01-11-[address] SHWETHA VILLA . Facility: Start: 05-27-2022 End: 05-27-2022 [facility] Start: 05-27-2022 End: 05-27-2022 Subsequent hospital visit by physician Flavio Amaya DPM Work Phone: [facility] Start: 05-27-2022 End: 05-27-2022 ambulatory JASON TOLEDO [facility] Start: 05-24-2022 End: 05-25-2022 ambulatory FLAVIO AMAYA [facility] Start: 05-24-2022 End: 05-24-2022 Subsequent hospital visit by physician Montana Gill MD Work Phone: [facility] Start: 05-23-2022 End: 05-23-2022 Emergency department patient visit [place] [facility] Start: 05-23-2022 End: 05-23-2022 Emergency department patient visit Montana Gill MD Work Phone: [facility] Comment on above: Closed fracture of r ight foot, initial encounter (Primary Dx) Start: 05-10-2022 End: 05-10-[address] SHWETHA VILLA . Facility: Procedures Date Procedure Procedure Detail Performing Clinician Start: 05-27-2022 Fluoroscopy up to 1 hour physician/qhp time Flavio Amaya DPM Work Phone: Start: 05-27-2022 Urine test visual color cmprsn meths Flavio Amaya DPM Work Phone: Start: 05-24-2022 Basic metabolic pane l calcium total Flavio Amaya DPM Work Phone: Start: 05-24-2022 IMMATURE PLATELET FRACTION Flavio Amaya DPM Work Phone: Start: 05-23-2022 SPLINT APPLICATION Tiff any N Jin PIERCING ARTIST - CORRECTIVE AND MANUAL ARTS THERAPIST Work Phone: Start: 05-23-2022 End: 05-23-2022 Radex ankle complete minimum 3 views Sonya Merchant MD Work Phone: Plan of Treatment Date Care Activity Detail Author Start: 2022 Influenza vaccination Flu vaccine (# 1) [facility] Start: 05-27-2022 End: 05-27-2022 Admission to same day surgery center 05/27/2022 Surgery IP Unit Flavio Amaya, DPM [address] [place] [address] ORIF OF FIFTH METATSRSAL FRACTURE RIGHT FOOT [facility] Comment on above: ORIF OF FIFTH METATS RSAL FRACTURE RIGHT FOOT Start: 05-27-2022 End: 05-27-2022 Open treatment metatarsal fracture each [facility] Start: 05-27-2022 Subsequent hospital visit by physician 05/27/2022 Hospital Encounter IP Unit Flavio Amaya, MARCYM [address] [place] [address] [facility] Start: 05-27-2022 End: 05-27-2022 Patient encounter procedure 05/27/2022 Appointment Pre-Admission Testing [facility] PRE [facility]MIT Start: 2018 Diabetes screen Diabetes screen [facility] Start: 2013 Screening for malign ant neoplasm of cervix [facility] Start: 2004 Screening for malign ant neoplasm of cervix Pap smear [facility] Start: 2002 DTaP/Tdap/Td vaccine (1 - Tdap) DTaP/Tdap/Td vaccine (1 - Tdap) [facility] Start: 2001 Hepatitis C screening Hepatitis C sc reen [facility] Start: 1998 HIV screening HIV screen [facility] [employer] Start: 1995 Depression Screen Depression Screen [facility] Start: 1984 Varicella vaccine (1 of 2 - 2-dose childhood series) Varicella vaccine (1 of 2 - 2-dose childhood series) [facility] [place] Start: 1983 COVID-19 Vaccine (#1) COVID-19 Vacci ne (#1) [facility] [place] Oxygen therapy [[facility] Data Set] Initiate Oxygen Therapy Protocol Respiratory Care Routine As Needed until discontinued starting 05/27/2022 On[employer] Phone: Comment on above: As Needed until disc ontinued starting 05/27/2022 Splint Application Splint Applic ation Procedures Routine 05/23/2022 11:34 AM EDT [employer] Phone: Payers Date Payer Category Payer Unknown [id number] [id number] 1985 Unknown [id number] [id number] 1985 Unknown [id number] [id number] 1983 Unknown [id number] [id number] [id number] 1983 Unknown [id number] 2.16.84 [id number] 1983 Unknown [id number] [id number] 1959 Unknown [id number] Social History Date Type Detail Facility Tobacco smoking stat [facility] Tobacco smoking consumption unknown [facility] [employer] Phone: Start: 1985 Sex Assigned At Not on file B ON [employer] Phone: Start: 05-13-2022 End: 05-27-2022 Exposure to SARS-CoV-2 (event) Not sure [employer] Phone: Start: 05-27-2022 [facility] [employer] Start: 05-27-2022 Tobacco use and exposure Smokeless tobacco non-user [employer] Phone: Medical Equipment Procedure Code Equipment Code Equipment Origin al Text Equipment Identifier Dates Wire Fix [id number] Mm Trocar Pt On Both Ends Ss Ns [facility] - [id number] [facility] Start: 05-27-2022 Hospital Discharge instructions 05-27-2022 Discharge Instructions Note Date & Type Note Facility 05-27-2022 Hospital Discharg e instructions Flavio Amaya DPM - 05/27/2022 5:44 PM EDT 1. Keep the surgical dressing and splint clean, dry, and intact 2. Elevate the operative extremity above heart level when seated or lying 3. Place ice behind the knee of the operative extremity 20 minutes per hour while awake 4. Strict nonweightbearing on the operative extremity documented in this encounter [employer] Phone: History of Present illness Narrative 05-27-2022 Savannah Iqbal RN - 05/27/2022 4:28 PM EDTBmarielena San RN - 05/24/2022 2:10 PM EDT Note Date & Type Note Facility 05-27-2022 History of Present illness Narrative Discharge Criteria Outpatients must meet criteria 1 through 7. Up to restroom, void sufficient amount. Yes 1. Minimum 30 minutes after last dose of sedative medication, minimum 120 minutes after last dose of reversal agent. Yes 2. Systolic BP stable within 20 mmHg for 30 minutes & systolic BP between 90 & 180 or within 10 mmHg of baseline. Yes 3. Pulse between 60 and 100 or within 10 bpm of baseline. Yes 4. Spontaneous respiratory rate >/= 10 per minute. Yes 5. SaO2 >/= 95 or >/= baseline. Yes 6. Able to cough and swallow or return to baseline function. Yes 7. Alert and oriented or return to baseline mental status. Yes 8. Demonstrates controlled, coordinated movements, ambulates with steady gait, or return to baseline activity function. Yes 9. Minimal or no pain or nausea, or at a level tolerable and acceptable to patient. Yes 10. Takes and retains oral fluids as allowed. Yes 11. Procedural / perioperative site stable. Minimal or no bleeding. Yes 12. If GI endoscopy procedure, minimal or no abdominal distention or passing flatus. Yes 13. Written discharge instructions and emergency telephone number provided. Yes 14. Accompanied by a responsible adult. Yes Adult patient discharged from facility without responsible person meets above criteria plus the following: a) remains awake without stimulus for 30 minutes b) oriented appropriate for age c) all vital signs stable d) no significant risk of losing protective reflexes e) able to maintain pre-procedure mobility without assistance f) no nausea or dizziness g) transportation arrangements that do not require patient to operate motor Vehicle. Yes [facility] Preadmission Testing Name: Presley Fong : 1985 Patient (home) Procedure: ORIF OF FIFTH METATSRSAL FRACTURE RIGHT FOOT - Right Date of Procedure: 05/07/22 Surgeon: Flavio Amaya DPM Ht: 5' 7 (170.2 cm) Wt: 200 lb (90.7 kg) Wt method: Allergies: No Known Allergies There were no vitals filed for this visit. Patient's last menstrual period was 05/20/2022. Do you take blood thinners? [] Yes [x] No Instructed to stop blood thinners prior to procedure? [] Yes [] No [x] N/A Do you have sleep apnea? [] Yes [x] No Do you have acid reflux ? [] Yes [x] No Do you have hiatal hernia? [] Yes [x] No Do you ever experience motion sickness? [x] Yes [] No Have you had a respiratory infection or sore throat in last 4 weeks before surgery? [] Yes [x] No Do you have poorly controlled asthma or COPD? Difficulty with intubation in past? [] Yes [x] No [] Yes [x] No Do you have a history of angina in the last month or symptomatic arrhythmia? [] Yes [x] No Do you have significant central nervous system disease? [] Yes [x] No Have you had an EKG, labs, or chest xray in last 12 months? If yes provide copies to anesthesia [x] Yes [] No [x] Lab [] EKG [] CXR Have you had a stress test? [] Yes [x] No When/where: Was it normal? [] Yes [] No Do you or your family have a history of Malignant Hyperthermia? [] Yes [x] No Do you smoke? [] Yes [x] No Please refrain from smoking on the day of surgery. Patient instructed on: [x] NPO Status [x] Meds to Take [x] Ride Home [x]No Jewelry/Contact Lenses/Nail [place] [] Prep/Lax/Clear Liquids [x] Chlorhexidene DOS Patient Needs [x] HCG [] Blood Sugar [] PT/INR [] T&S COVID Vaccinated? [] Yes [x] No Patient instructed on the pre-operative, intra-operative, and post-operative process? Yes Medication instructions reviewed with patient? Yes documented in this encounter [employer] [facility] Phone: Hospital Discharge instructions 05-23-2022 Discharge InstructionsAttachments Note Date & Type Note Facility 05-23-2022 Hospital Discharg e instructions Corrie Abdi PIERCING ARTIST - CORRECTIVE AND MANUAL ARTS THERAPIST - 05/23/2022 11:00 AM EDT Use the crutches and do not bear weight on your right foot. Keep your foot elevated as much as possible. Apply ice frequently (20 minutes at a time every 2-3 hours while awake) to help reduce pain and swelling. Do not get your temporary cast wet. You will have this removed and a new cast or boot applied by Dr. Nicolas at your appointment. The following attachments cannot be sent through Care Everywhere.Foot Fracture ([place]ri [place]ankan)documented in this encounter [employer] Phone: Evaluation note Note Date & Type Note Facility Evaluation note Diagnosis Closed fracture of right foot, initial encounter- Primary documented in this encounter [employer] Phone: Advance Directives No Advanced Directives Records FoundLatest Code Status on File Code Status Date Activated Date Inactivated Comments Full Code 05/27/2022 2:18 PM Summary Purpose Family History No Family History Records FoundNo Family History Records FoundNo Family History Records Found Additional Source Comments Reason for Visit (unrecogniz ed section and content) Reason Comments Foot Injury Pt fell off a stool landing wrong on right foot. Pt reports unable to bear wt. Pt reports no other injuries. Ice pack applied in triage Specialty Diagnoses / Procedures Referred By Contac t Referred To Contact Diagnoses Closed displaced fracture of fifth metatarsal bone of right foot with routine healing, subsequent encounter Closed displaced fracture of fifth metatarsal bone of right foot with routine healing, subsequent encounter [S92.351D] Procedures OPEN TREATMENT METATARSAL FRACTURE EACH ORIF OF FIFTH METATSRSAL FRACTURE RIGHT FOOT Flavio Amaya, DPVandana [address] [place] [address] [employer] [address] [place] [address] Referral ID Status Reason Start Date Expiration Date Visits Re quested Visits Authorized [id number] 1 1 Ordered Prescriptions (unrec ognized section and content) Prescription Sig Dispensed Refills Start Date End Da te traMADol (ULTRAM) 50 MG tabletIndications:Closed fracture of right foot, initial encounter Take 1 tablet by mouth every 6 hours as needed for Pain for up to 3 days. Intended supply: 5 days. Take lowest dose possible to manage pain 12 tablet 0 05/23/2022 05/26/2022 Care Teams (unrecognized sec tion and content) Web Content Executive Relationship Specialty Start Date End Date Montana Gill MD [address] [place] [address] PCP - General Family Medicine 05/23/22 Web Content Executive Relationship Specialty Start Date End Date Montana Gill MD [address] [place] [address] PCP - General Family Medicine 05/23/22 Web Content Executive Relationship Specialty Start Date End Date Montana Gill MD [address] [place] [address] PCP - General Family Medicine 05/23/22 Scheduled Active and Recently Administ ered Medications (unrecognized section and content) Medication Order 05/25/2022 05/26/2022 05/27/2022 ceFAZolin (ANCEF) 2000 mg in dextrose 3 % 50 mL IVPB (duplex) (COMPLETED) 2,000 mg, IntraVENous, RESPIRATORY SUPPORT TECHNICIAN TO O.R., 1 dose, On Fri05/27/22 at 1445, Antimicrobial Indications: Surgical Prophylaxis, Administer within 1 hour prior to incision. Recommend to repeat in 3-4 hours after initial dose if still intra-op., Pre-op (day of surgery) 1618 (New Bag - Prov ider: Michel Aguiar RN)1648 (Due: Stopped - Provider: Michel Aguiar RN) HYDROcodone-acetaminophen (NORCO) 5-325 MG per tablet 2 tablet (COMPLETED) 2 tablet, Oral, ONCE, 1 dose, On Fri05/27/22 at 1900, Maximum dose of acetaminophen is 4000 mg from all sources in 24 hours. 1844 (Given - Provid er: Savannah Iqbal RN) sodium chloride flush 0.9 % injection 5-40 mL 5-40 mL, IntraVENous, EVERY 12 HOURS SCHEDULED (2 times per day), First dose on Fri05/27/22 at 2100, Until Discontinued, For Line Patency: Peripheral IV = 5 mL; Midline or Central Line = 10 mL/lumen. If following IV push medication, administer flush at same rate as the IV push. Flush volume is determined by type of infusion therapy being given. For non-viscous solutions use: Peripheral IV = 5 mL Midline or Central Line = 10 mL/lumen For viscous solutions (i.e. blood components, parenteral nutrition, contrast media, or after obtaining blood sample) use: Peripheral IV = 10 mL Midline or Central Line = 20 mL/lumen, Pre-op (day of surgery) 2100 (Due) Continuous Medication Order 05/25/2022 05/26/2022 05/27/2022 lactated ringers infusion IntraVENous, at 125 mL/hr, CONTINUOUS, Starting on Fri05/27/22 at 1445, Pre-op (day of surgery) 1443 (New Bag - Prov ider: Polly San RN)1628 (NoRateChange - Provider: Juan Daniel Jain APRN - DOCTOR'S ASSISTANT)1723 (New Bag - Provider: JENNIFER Reese CRNA) PRN Medication Order 05/25/2022 05/26/2022 05/27/2022 bupivacaine (MARCAINE) 0.5 % injection (CANCELED) PRN, Starting on Fri05/27/22 at 1725, Until Fri05/27/22 at 1754, Intra-op 1725 (Given - Provid er: Flavio Amaya DPM - Comment: 30mL given up to sterile field. 20mL used.) sodium chloride 0.9 % irrigation (COMPLETED) CONTINUOUS PRN, Starting on Fri05/27/22 at 1726, Intra-op 1726 (New Bag - Prov ider: Flavio Amaya DPM - Comment: used as irrigation furing procedure per Dr. Amaya) sodium chloride flush 0.9 % injection 5-40 mL 5-40 mL, IntraVENous, PRN, Starting on Fri05/27/22 at 1417, Until Discontinued, Line Care, After every IV line use, For Line Patency: Peripheral IV = 5 mL; Midline or Central Line = 10 mL/lumen. If following IV push medication, administer flush at same rate as the IV push. Flush volume is determined by type of infusion therapy being given. For non-viscous solutions use: Peripheral IV = 5 mL Midline or Central Line = 10 mL/lumen For viscous solutions (i.e. blood components, parenteral nutrition, contrast media, or after obtaining blood sample) use: Peripheral IV = 10 mL Midline or Central Line = 20 mL/lumen, Pre-op (day of surgery) INFORMATION SOURCE (unrecogn ized section and content) DATE CREATED AUTHOR 05/29/2022 [facility] DATE CREATED AUTHOR AUTHOR'S ORGANIZ ATION 05/30/2022 [facility] DATE CREATED AUTHOR AUTHOR'S ORGANIZ ATION 01/19/2023 [facility] FOR RECORDS PERTAINING TO PATIENTS WHO ARE OR HAVE BEEN ENROLLED IN A CHEMICAL DEPENDENCY/SUBSTANCEABUSE PROGRAM, SOME INFORMATION MAY BE OMITTED. This clinical summary was aggregated from multiple sources. Caution should be exercised in using it in the provision of clinical care. This summary normalizes information from multiple sources, and as a consequence, information in this document may materially change the coding, format and clinical context of patient data. In addition, data may be omitted in some cases. CLINICAL DECISIONS SHOULD BE BASED ON THE PRIMARY CLINICAL RECORDS. [employer] provides no warranty or guarantee of the accuracy or completeness of information in this document.
== END 2024-01-12 07:57 | disposition home or self-care (01) ==
LOC: MAMMO 07:57
PROVIDERS: Family Provider Family Medicine; Visit Provider Obstetrics & Gynecology
DX: Z12.31 Encounter for screening mammogram for malignant neoplasm of breast (principal); Z80.3 Family history of malignant neoplasm of breast
CPT/HCPCS: 77063; 77067

== ENCOUNTER 2024-08-09 22:29 | Outpatient (REF) | payer OTHER, SELFPAY ==
[2024-08-17 15:11] LABS: Age Gdln ACOG Testing Note (.); HPV Aptima Negative (Negative); IGP, Aptima HPV, rfx 16/18,45 Note (.)
== END 2024-08-09 22:30 | disposition home or self-care (01) ==
LOC: LAB 22:29
PROVIDERS: Family Provider Family Medicine; Visit Provider Physician Assistant
DX: Z01.419 Encounter for gynecological examination (general) (routine) without abnormal findings (principal)
CPT/HCPCS: 88175

== ENCOUNTER 2025-01-17 09:18 | Outpatient (OUT) | payer OTHER, SELFPAY ==
--- NOTE | 2025-01-17 09:20 | MM_ITS ---
Patient Name: PRESLEY FONG MR#: [id number] : 1985 Exam Date: 01/17/2025 Ordering Doctor: DR Tato Harding . RADIOLOGY REPORT PROCEDURE: MM TOMOSYNTHESIS SCREENING BI COMPARISON: MM TOMOSYNTHESIS SCREENING BI, 01/12/2024. MG MAMM SCREEN 3D MANDIE CAD, 01/10/2023. MG MAMM SCREEN 3D MANDIE CAD, 01/01/2022. MG MAMM SCREEN MANDIE W CAD, 11/01/2020. INDICATIONS: Screening Calculator Name NCI Breast Cancer Risk Assessment Tool 5 Year Breast Cancer Risk 1.20% Lifetime Breast Cancer Risk 18.60% Personal Breast Cancer No Personal Ovarian Cancer No Treatments None Family Cancers Grandmother-paternal with breast cancer at age 42; Sister with breast cancer at age 37; Cousin-paternal with breast cancer at age 43; Aunt-maternal with breast cancer at age ~38. LOCATION: [facility] BREAST COMPOSITION: The breasts are almost entirely fatty. FINDINGS: DIAGNOSTIC CATEGORY 1--NEGATIVE. RIGHT BREAST: No significant suspicious finding. LEFT BREAST: No significant suspicious finding. RECOMMENDATIONS: ROUTINE MAMMOGRAM AND CLINICAL EVALUATION IN 12 MONTHS. PLEASE NOTE: A NORMAL MAMMOGRAM DOES NOT EXCLUDE THE POSSIBILITY OF BREAST CANCER. A CLINICALLY SUSPICIOUS PALPABLE LUMP SHOULD BE BIOPSIED. Dictated by: Nima Flaherty DO on 01/17/2025 at 15:52 Approved by: Nima Flaherty DO on 01/17/2025 at 15:53
== END 2025-01-17 09:19 | disposition home or self-care (01) ==
LOC: MAMMO 09:18
PROVIDERS: Family Provider Family Medicine; Visit Provider Obstetrics & Gynecology
DX: Z12.31 Encounter for screening mammogram for malignant neoplasm of breast (principal); Z80.3 Family history of malignant neoplasm of breast
CPT/HCPCS: 77063; 77067

== ENCOUNTER 2025-09-07 19:24 | Outpatient (REF) | payer OTHER, SELFPAY ==
--- OUTSIDE RECORDS SUMMARY | 2025-09-07 15:50 | XMS_ITS | Encounter Summary ---
Author Organization [facility] Address [address] [place] [address] Care Team Providers Care Logging Assistant Name Role Phone Montana Gill MD Primary Care Provider [phone] Encounter Details DateTypeDepartmentCare Team (Latest Contact Info)Thtbmdpajrv80/03/2025 3:50 PM ESTOffice Visit [facility] [address] [place] [address] Annel Douglas PA [address] [place], [facility] Well woman exam with routine gynecological exam; Encounter for screening mammogram for malignant neoplasm of breast; Vaginal discharge Social History Tobacco UseTypesPacks/DayYears UsedDateSmoking Tobacco: NeverAlcohol UseStandard Drinks/WeekCommentsNot Asked0 (1 standard drink = 0.6 oz pure alcohol)occasional CommentsNoSex and Gender InformationValueDate RecordedSex Assigned at BirthNot on fileLegal KheRfuxok25/15/2023 11:47 PM EDTGender IdentityNot on file Sexual OrientationNot on filedocumented as of this encounter Last Filed Vital Signs Vital SignReadingTime TakenCommentsBlood Juqpphnq142/8209/07/2025 4:30 PM EST Pulse--Temperature--Respiratory Rate--Oxygen Saturation--Inhaled Oxygen Concentration--Byuscy347 kg (224 lb 1.9 oz)09/07/2025 4:30 PM ESTHeight--Body Mass Index35.107 3:04 PM EDTdocumented in this encounter Plan of Treatment DateTypeDepartmentCare Team (Latest Contact Info)Zwdrdlzycnt56/21/2026 4:00 PM ESTProcedure Visit [facility] [address] [place] [address] Tato Harding DO [address] [place] [address] NameTypePriorityAssociated DiagnosesOrder ScheduleBilateral screening mammogram ImagingRoutine Well woman exam with routine gynecological exam Encounter for screening mammogram for malignant neoplasm of breast Expected: 09/07/2025 (Approximate), Expires: 11/08/2026THIN PREP TIS PAP AND HR HPV DNAPathology and CytologyRoutine Well woman exam with routine gynecological exam Ordered: 09/07/2025SURESWAB(R) ADVANCED VAGINITIS PLUS, TMAPathology and CytologyRoutine Vaginal discharge Ordered: 09/07/2025HLAMYDIA TRACHOMATIS (GENITO/STI)LabRoutine Vaginal discharge Ordered: 09/07/2025Neisseria gonorrhea DNA probe, directLabRoutine Vaginal discharge Ordered: 09/07/2025documented as of this encounter Visit Diagnoses Diagnosis Well woman exam with routine gynecological exam Routine gynecological examination Encounter for screening mammogram for malignant neoplasm of breast Vaginal discharge Leukorrhea, not specified as infective documented in this encounter Care Teams Team MemberRelationshipSpecialtyStart DateEnd Date Montana iGll MD [address] [place] [address] PCP - GeneralFamily Erkwprpl14/18/23documented as of this encounter
--- OUTSIDE RECORDS SUMMARY | 2025-09-07 19:27 | XMS_ITS | CCD ---
Author Organization [facility] Care Team Providers Care Gill Tender Name Role Phone Montana Gill MD Primary Care Provider JASON TOLEDO Referring Unavailable MONTANA GILL Primary Care Unavailable FLAVIO AMAYA Admitting Unavailable FLAVIO AMAYA Attending Unavailable MONTANA GILL Primary Care Unavailable KARASITad ., DR TADEO Admitting Unavailabl e KARASIK ., DR TADEO Attending Unavailabl e MISC, DR RODRIGUEZ Primary Care Unavailable KARASIK ., DR TADEO Consulting Unavailabl e KARASIK ., DR TADEO Admitting Unavailabl e KARASIK ., DR TADEO Attending Unavailabl e MISC, DR RODRIGUEZ Primary Care Unavailable KARASIK ., DR TADEO Consulting Unavailgeetha e Jd Garcia Consulting Unavailable MARYAM, DR SHEPARD Consulting Unavailable Montana Gill MD Primary Care Provider MONTANA GILL Primary Care Unavailable Montana Gill MD Primary Care Provider MONY HARDING Attending Unavailable ANNEL GARVIN Attending Unavailable Montana Gill MD Primary Care Provider [phone] Medications Current Medications MedicationDrug Class(es)DatesSig (Normalized)Sig (Original)[id number] 200 actuat albuterol 0.09 mg/actuat metered dose inhaler (4 sources)beta2-Adrenergic AgonistStart: 36-00-9736ktnf 1-2 puff(s) by mouth three times dailyalbuterol HFA 90 mcg/act inhaler inhale 1 to 2 puffs by mouth and INTO THE LUNGS three times a day if needed 11/19/2023 Activecalcium chloride 0.0014 meq/ml / potassium chloride 0.004 meq/ml / sodium chloride 0.103 meq/ml / sodium lactate 0.028 meq/ml injectable solution (1 source)Start: 23-42-2781ujtmxqzk ringers infusioncefuroxime 250 mg oral tablet (4 sources)Cephalosporin AntibacterialStart: 80-13-3504wvzv 1 tablet by mouth in the morningcefuroxime (Ceftin) 250 MG tablet Take 250 mg by mouth in the morning and 250 mg before bedtime. 09/16/2023 Activedoxycycline hyclate 100 mg oral capsule (1 source)Tetracycline-class Drugtake 1 capsule by mouth twice dailydoxycycline hyclate (VIBRAMYCIN) 100 MG capsule Take 1 capsule by mouth 2 times daily Active escitalopram 10 mg oral tablet (10 sources)Serotonin Reuptake Inhibitortake 1 tablet by mouth in the morning escitalopram (Lexapro) 10 MG tablet Take 10 mg by mouth in the morning. Cuspyg19 hr guaiFENesin 600 mg extended release oral tablet (4 sources)Start: 30-23-6424nipa 1 tablet by mouth in the morning, then take 1 tablet by mouth every twelve hours at bedtimeCVS Mucus Extended Release 600 MG 12 hr tablet Take 600 mg by mouth in the morning and 600 mg before bedtime. 07/16/2024 ActivemethylPREDNISolone 4 mg oral tablet (1 source)Corticosteroidtake 1 tablet by mouth once dailymethylPREDNISolone (MEDROL) 4 MG tablet Take 1 tablet by mouth daily ActiveNorethin-Eth Estrad Triphasic (NORTREL 7/7/7 PO) (4 sources)Norethin-Eth Estrad Triphasic (NORTREL 7/7/7 PO) Take by mouth Active Norethin-Eth Estrad Triphasic (NORTREL 7/7/7 PO) Take by mouth 0 Active5 ml sodium chloride 9 mg/ml injection (2 sources)Start: 91-80-0746nhxqeh chloride flush 0.9 % injection 5-40 mLStart: 24-03-4370gojmfk chloride flush 0.9 % injection 5-40 mL Completed/Discontinued Medications MedicationDrug Class(es)DatesSig (Normalized)Sig (Original)acetaminophen 325 mg / HYDROcodone bitartrate 5 mg oral tablet (1 source)Opioid AgonistStart: 05-27-2022 End: 19-82-5097WICZNcrsbjx-acetaminophen (NORCO) 5-325 MG per tablet 2 tablet Start: 05-27-2022 End: 15-28-8353DGMVLjvseuv-acetaminophen (NORCO) 5-325 MG per tablet 2 tablet ceFAZolin 2000 mg injection (1 source)Cephalosporin AntibacterialStart: 05-27-2022 End: 84-88-7056niVSJkzld (ANCEF) 2000 mg in dextrose 3 % 50 mL IVPB (duplex) ethinyl estradiol 0.035 mg / norethindrone 0.75 mg oral tablet (2 sources)Estrogen End: 60-24-9105dhatnhkgevejo-ethinyl estradiol (Necon ) 0.5/0.75/1-35 MG- MCG tablet Take by mouth 08/09/2024 Discontinued (Therapy completed)10 ml lidocaine hydrochloride 10 mg/ml injection (1 source)Antiarrhythmic, Amide Local AnestheticStart: 07-22-2024 End: mL, IntraDERmal, ONCE, 1 dose, On Lilly 07/22/24 at 2014traMADol hydrochloride 50 mg oral tablet (2 sources)Opioid AgonistStart: 05-23-2022 End: 96-81-7837sjaGYQeg (ULTRAM) 50 MG tablet Indications: Closed fracture of right foot, initial encounter Take 1tablet by mouth every 6 hours as needed for Pain for up to 3 days. Intended supply: 5 days. Take lowest dose possible to manage pain 12 tablet 0 05/23/2022 05/24/2022 Discontinued (Therapy completed) Problems Active Problems Problem ClassificationProblemDateDocumented DateEpisodic/ChronicFracture of lower limb (1 source)Closed fracture of right foot; Translations: [Unspecified fracture of right foot, initial encounterfor closed fracture]EpisodicOpen wounds of extremities (2 sources)Laceration of right little finger; Translations: [Laceration without foreign body of right little finger without damage to nail, initial encounter] Onset: [id number] screening for suspected conditions (not mental disorders or infectious disease) (8 sources)Encounter for screening mammogram for malignant neoplasm of breast; Translations: [Encounter for screening for malignant neoplasm of cervix]Onset: 56-10-2976SrjzwdeuLpfcuzoa codes; unclassified (1 source)Family history of malignant neoplasm of breast; Translations: [FAMILY HX MALIG NEOPLASM OF BREAST]Onset: 39-01-5274Mrhtxile Past or Other Problems Problem ClassificationProblemDateDocumented DateEpisodic/ChronicImmunizations and screening for infectious disease (1 source)Encounter for screening for human papillomavirus (HPV); Translations: [ENC SCREENING HUMAN PAPILLOMAVIRUS]Onset: 36-24-4411Rhdxryhl Results Test NameValueInterpretationReference RangeFacilityMM TOMOSYNTHESIS SCREENING BI on 37-96[place]8569[place] [address] Mammography Report Signed Patient: PRESLEY FONG MR#: [id number] : 1985 Acct:[id number] Age/Sex: 39 / F ADM Date: 01/17/25 Loc: MAMMO Attending Dr: Mony Harding D.O. Ordering Physician: Mony Harding D.O. Results: Date of Service: 01/17/25 Follow Up: Procedure(s): MM tomosynthesis screening BI Accession Number(s): [id number] cc: Mony Harding D.O.; Physician,Non-Staff Lynn Patient Name: PRESLEY FONG MR#: [id number] : 1985 Exam Date: 01/17/2025 Ordering Doctor: DR Mony Harding . RADIOLOGY REPORT PROCEDURE: MM TOMOSYNTHESIS SCREENING BI COMPARISON: MM TOMOSYNTHESIS SCREENING BI, 01/12/2024. MG MAMM SCREEN 3D MANDIE CAD, 01/10/2023. MG MAMM SCREEN 3D MANDIE CAD, 01/01/2022. MG MAMM SCREEN MANDIE W CAD, 11/01/2020. INDICATIONS: Screening Calculator Name NCI Breast Cancer Risk Assessment Tool 5 Year Breast Cancer Risk 1.20% Lifetime Breast Cancer Risk 18.60% Personal Breast Cancer No Personal Ovarian Cancer No Treatments None Family Cancers Grandmother-paternal with breast cancer at age 42; Sister with breast cancer at age 37; Cousin-paternal with breast cancer at age 43; Aunt-maternal with breast cancer at age 38. LOCATION: [facility] BREAST COMPOSITION: The breasts are almost entirely fatty. FINDINGS: DIAGNOSTIC CATEGORY 1--NEGATIVE. RIGHT BREAST: No significant suspicious finding. LEFT BREAST: No significant suspicious finding. RECOMMENDATIONS: ROUTINE MAMMOGRAM AND CLINICAL EVALUATION IN 12 MONTHS. PLEASE NOTE: A NORMAL MAMMOGRAM DOES NOT EXCLUDE THE POSSIBILITY OF BREAST CANCER. A CLINICALLY SUSPICIOUS PALPABLE LUMP SHOULD BE BIOPSIED. Dictated by: Nima Flaherty DO on 01/17/2025 at 15:52 Approved by: Nima Flaherty DO on 01/17/2025 at 15:53 Dictated By: Nima Flaherty M.D. Signed By: 01/17/25 1554 DD/ 1553 TD/TT: Transmission Mechanic:TBHRadiology, Radiologist, - 01/17/2025 [place] [address] Mammography Report Signed Patient: PRESLEY FONG MR#: [id number] : 1985 Acct:[id number] Age/Sex: 39 / F ADM Date: 01/17/25 Loc: MAMMO Attending Dr: Mony Harding D.O. Ordering Physician: Mony Harding D.O. Results: Date of Service: 01/17/25 Follow Up: Procedure(s): MM tomosynthesis screening BI Accession Number(s): [id number] cc: Mony Harding D.O.; Physician,Non-Staff Lynn Patient Name: PRESLEY FONG MR#: [id number] : 1985 Exam Date: 01/17/2025 Ordering Doctor: DR Mony Harding . RADIOLOGY REPORT PROCEDURE: MM TOMOSYNTHESIS SCREENING BI COMPARISON: MM TOMOSYNTHESIS SCREENING BI, 01/12/2024. MG MAMM SCREEN 3D MANDIE CAD, 01/10/2023. MG MAMM SCREEN 3D MANDIE CAD, 01/01/2022. MG MAMM SCREEN MANDIE W CAD, 11/01/2020. INDICATIONS: Screening Calculator Name NCI Breast Cancer Risk Assessment Tool 5 Year Breast Cancer Risk 1.20% Lifetime Breast Cancer Risk 18.60% Personal Breast Cancer No Personal Ovarian Cancer No Treatments None Family Cancers Grandmother-paternal with breast cancer at age 42; Sister with breast cancer at age 37; Cousin-paternal with breast cancer at age 43; Aunt-maternal with breast cancer at age 38. LOCATION: [facility] BREAST COMPOSITION: The breasts are almost entirely fatty. FINDINGS: DIAGNOSTIC CATEGORY 1--NEGATIVE. RIGHT BREAST: No significant suspicious finding. LEFT BREAST: No significant suspicious finding. RECOMMENDATIONS: ROUTINE MAMMOGRAM AND CLINICAL EVALUATION IN 12 MONTHS. PLEASE NOTE: A NORMAL MAMMOGRAM DOES NOT EXCLUDE THE POSSIBILITY OF BREAST CANCER. A CLINICALLY SUSPICIOUS PALPABLE LUMP SHOULD BE BIOPSIED. Dictated by: Nima Flaherty DO on 01/17/2025 at 15:52 Approved by: Nima Flaherty DO on 01/17/2025 at 15:53 Dictated By: Nima Flaherty M.D. Signed By: 01/17/25 1554 DD/ 155 TD/TT: Transmission Mechanic: [facility] HospitalRadiology Study observation (narrative)[facility] TOMOSYNTHESIS SCREENING BIOrdered By: Radiologist Radiology on 09-24-7870[facility] Work Phone: IGP,APTIMA HPV,AGE GDLNon 81-00-7194FXE GDLN ACOG TESTINGNote.[facility] HospitalComment on above:TESTS RESULT FLAG UNITS REF RANGE LAB Clinician Provided Cytology Information Source.............Cervix;Endocervix No. of containers..01 ThinPrep Vial Age Algo ACOG Marlena... 30-65 01 FLAG LEGEND: L-Low Normal,H-High Normal,LL-Alert Low,HH-Alert High <-Panic Low,>-Panic High,A-Abnormal,AA-Critical Abnormal Performed at: 01 =[address] [place] [address] Jewels Cox MD, HPV APTIMANegativeNegativeNOMS HealthcareComment on above:This nucleic acid amplification test detects fourteen high- risk HPV types (16,18,31,33,35,39,45,51,52,56,58,59,66,68) without differentiation. Performed at: =[address], [place] [id number] Photograph Retoucher: Jewels Cox MD, Phone: [phone] Performed at: [address] [id number] Photograph Retoucher: Jewels Cox MD, Phone: [phone] IGP, APTIMA HPV, RFX 16/18,45Note.NOMS HealthcareComment on above:TESTS RESULT FLAG UNITS REF RANGE LAB DIAGNOSIS: 02 NEGATIVE FOR INTRAEPITHELIAL LESION OR MALIGNANCY. Specimen adequacy: 02 Satisfactory for evaluation. No endocervical component is identified. Performed by: 02 Mike Cheatham, Fabrication Manager (ASC) . 02 Note: Note 02 The Pap smear is a screening test designed to aid in the detection of premalignant and malignant conditions of the uterine cervix. It is not a diagnostic procedure and should not be used as the sole means of detecting cervical cancer. Both false-positive and false-negative reports do occur. Test Methodology: Note 02 This liquid based ThinPrep(R) pap test was screened with the use of an image guided system. HPV Genotype Reflex Note 02 Criteria not met, HPV Genotype not performed. FLAG LEGEND: L-Low Normal,H-High Normal,LL-Alert Low,HH-Alert High <-Panic Low,>-Panic High,A-Abnormal,AA-Critical Abnormal Performed at: [address] [address] Jewels Cox MD, BRUSH-SPATULA CERVIX ENDOCERVIX [facility] TOMOSYNTHESIS SCREENING BIon 32-34-8789[place] [address] Mammography Report Signed Patient: PRESLEY FONG MR#: [id number] : 1985 Acct:[id number] Age/Sex: 38 / F ADM Date: 01/12/24 Loc: MAMMO Attending Dr: Mony Harding D.O. Ordering Physician: Mony Harding D.O. Results: Date of Service: 01/12/24 Follow Up: Procedure(s): MM tomosynthesis screening BI Accession Number(s): [id number] cc: Mony Harding D.O.; Physician,Non-Staff MFaisal Patient Name: PRESLEY FONG MR#: [id number] : 1985 Exam Date: 01/12/2024 Ordering Doctor: DR Mony Harding . RADIOLOGY REPORT PROCEDURE: MM TOMOSYNTHESIS SCREENING BI COMPARISON: MG MAMM SCREEN 3D MANDIE CAD, 01/01/2022. MG MAMM SCREEN 3D MANDIE CAD, 01/10/2023. INDICATIONS: Screening for malignant neoplasm Calculator Name NCI Breast Cancer Risk Assessment Tool 5 Year Breast Cancer Risk 0.60% Lifetime Breast Cancer Risk 11.10% Personal Breast Cancer No Personal Ovarian Cancer No Treatments None Family Cancers Aunt-maternal with breast cancer at age 38. LOCATION: [facility] BREAST COMPOSITION: Scattered areas fibroglandular density. FINDINGS: DIAGNOSTIC CATEGORY 1--NEGATIVE. NO CHANGE FROM COMPARISON ASSESSMENT. Scattered benign-appearing lymph nodes are present. RIGHT BREAST: No significant suspicious finding. LEFT BREAST: No significant suspicious finding. RECOMMENDATIONS: ROUTINE MAMMOGRAM AND CLINICAL EVALUATION IN 12 MONTHS. PLEASE NOTE: A NORMAL MAMMOGRAM DOES NOT EXCLUDE THE POSSIBILITY OF BREAST CANCER. A CLINICALLY SUSPICIOUS PALPABLE LUMP SHOULD BE BIOPSIED. Dictated by: Thierno Braun MD on 01/13/2024 at 07:37 Approved by: Thierno Braun MD on 01/13/2024 at 07:38 Dictated By: Thierno Braun M.D. Signed By: 01/13/2439 DD/ 7 TD/TT: Transmission Mechanic:TBHRadiology, Radiologist, - 01/13/2024 [place] [address] Mammography Report Signed Patient: PRESLEY FONG MR#: [id number] : 1985 Acct:[id number] Age/Sex: 38 / F ADM Date: 01/12/24 Loc: MAMMO Attending Dr: Mony Harding D.O. Ordering Physician: Mony Harding D.O. Results: Date of Service: 01/12/24 Follow Up: Procedure(s): MM tomosynthesis screening BI Accession Number(s): [id number] cc: Mony Harding D.O.; Physician,Non-Staff Lynn Patient Name: PRESLEY FONG MR#: [id number] : 1985 Exam Date: 01/12/2024 Ordering Doctor: DR Mony Harding . RADIOLOGY REPORT PROCEDURE: MM TOMOSYNTHESIS SCREENING BI COMPARISON: MG MAMM SCREEN 3D MANDIE CAD, 01/01/2022. MG MAMM SCREEN 3D MANDIE CAD, 01/10/2023. INDICATIONS: Screening for malignant neoplasm Calculator Name NCI Breast Cancer Risk Assessment Tool 5 Year Breast Cancer Risk 0.60% Lifetime Breast Cancer Risk 11.10% Personal Breast Cancer No Personal Ovarian Cancer No Treatments None Family Cancers Aunt-maternal with breast cancer at age 38. LOCATION: [facility] BREAST COMPOSITION: Scattered areas fibroglandular density. FINDINGS: DIAGNOSTIC CATEGORY 1--NEGATIVE. NO CHANGE FROM COMPARISON ASSESSMENT. Scattered benign-appearing lymph nodes are present. RIGHT BREAST: No significant suspicious finding. LEFT BREAST: No significant suspicious finding. RECOMMENDATIONS: ROUTINE MAMMOGRAM AND CLINICAL EVALUATION IN 12 MONTHS. PLEASE NOTE: A NORMAL MAMMOGRAM DOES NOT EXCLUDE THE POSSIBILITY OF BREAST CANCER. A CLINICALLY SUSPICIOUS PALPABLE LUMP SHOULD BE BIOPSIED. Dictated by: Thierno Braun MD on 01/13/2024 at 07:37 Approved by: Thierno Braun MD on 01/13/2024 at 07:38 Dictated By: Thierno Braun M.D. Signed By: 01/13/24738 DD/ 7 TD/TT: Transmission Mechanic: [facility] Centeriology Study [facility] (narrative)[facility] TOMOSYNTHESIS SCREENING BIOrdered By: Radiologist Radiology on 89-67-0655TLFETexas County Memorial Hospital Work Phone: cytology Cervical or vaginal smear or scraping studyon 83-81-0262GVJLEastern [facility] State Hospital MAMM SCREEN 3D MANDIE CADon 35-53-3863JF MAMM SCREEN 3D MANDIE CADPatient: COVERT, PRESLEY PalomoErnst Exam Date: 01/10/2023 : 1985 Gender:F Ordering : DR SHWETHA VILLA . Admission #: [id number] Family : Order #: [id number] CLICK HERE TO VIEW EXAM RADIOLOGY REPORT [...] breast cancer at age 36. LOCATION: [facility] BREAST COMPOSITION: Scattered areas fibroglandular density. FINDINGS: [...] by: Jd Garcia M.D. on 01/10/2023 at 14:55[facility] HospitalFL LESS THAN 1 HOURon 12-59-1874PE LESS THAN 1 HOUREXAMINATION: FL LESS THAN 1 HOUR HISTORY: Reason [...] by: Edgardo Han Jr., MD 05/27/22 Final resultNoAkron [facility] Hospital Fluoroscopy during internal fixation right fifth metatarsal. [facility] CONSOLIDATEDEXAMINATION: FL LESS THAN 1 HOUR HISTORY: Reason for exam:->ORIF RIGHT FIFTH METATARSAL COMPARISON: None. FLUOROSCOPY TIME: Fluoro time measures 8 seconds and 2 spot images were obtained. TECHNIQUE: Fluoroscopy with spot films. FINDINGS: Images demonstrate a percutaneous pin placed through the fifth metatarsal with 2 cerclage wires around the fifth metatarsal shaft. Anatomic alignment. [facility] Edgardo Maldonado Jr., MD - 05/27/2022 EXAMINATION: FL LESS [...] Fluoroscopy during internal fixation right fifth metatarsal. [employer] Phone: radiology Study observation (narrative)[employer] Phone: FL LESS THAN 1 HOUROrdered By: Edgardo Han on 66-17-1040THJ [facility] Work Phone: HCG, ,Urineon 72-57-6860Fmko HCG ( test) Ql (U)NegativeNormalNEGMercy Bolivar Medical Center on above:Performed By: #### UHCG #### [facility] [address] [place] [address] Photograph Retoucher: Thierno Linton MDPregnancy, Urineon 42-92-1201Jzof HCG ( test) Ql (U)NegativeNEGATIVEBON ZAN[facility]VIL[facility] CITY HOSPITALBON [facility] AZDQ-GlI-4qs 79-87-5572MEMH-CoV-2 (COVID-19) RNA GERARDO+probe Ql (Unsp spec)Not detectedNormalNOTDETMOhioHealth Grove City Methodist Hospital on above:Result Comment: Rapid NAAT: The specimen is NEGATIVE [...] management decisions. Fact sheet for Healthcare Providers: https://www.fda.gov/media/330551/download Fact sheet for Patients: https://www.fda.gov/media/055356/download Methodology: Isothermal Nucleic Acid AmplificationPerformed By: #### COVRB #### [facility] [address] [place] [address] Photograph Retoucher: Yamil Quiñones Metabolic Panelon 54-69-0448Imcfb gap [Moles/Vol]10 mmol/L9 - 17 mmol/LBON [facility]VILLE CITY HOSPITALCalcium [Mass/Vol]10.0 mg/dL8.6 - 10.4 mg/dLBON SECOURS MERCY HEALTHChloride [Moles/Vol]103 mmol/L98 - 107 mmol/LBON SECOURS MERCY HEALTHCO2 [Moles/Vol]25 mmol/L20 - 31 mmol/LBON [facility]OURS MERCY HEALTHCreatinine [Mass/Vol]0.64 mg/dL0.5 - 0.9 mg/dLBON SECOURS MERCY HEALTHGFR >6060 - PINF mL/minBON SECOURS MERCY HEALTHGFR Non->6060 - PINF mL/minBON SECOURS MERCY HEALTHGlucose [Mass/Vol]92 mg/dL70 - 99 mg/dLBON SECOURS MERCY HEALTHPotassium [Moles/Vol]4.8 mmol/L3.7 - 5.3 mmol/LBON SECOURS MERCY HEALTHSodium [Moles/Vol]138 mmol/L135 - 144 mmol/LBON SECOURS MERCY HEALTHUrea nitrogen (BldV) [Mass/Vol]13 mg/dL6 - 20 mg/dLBON SECOURS MERCY HEALTHUrea nitrogen/Creatinine (Bld) [Mass ratio]209 - 20 [facility]OS[facility]ITALB[facility] LIMACBC with Auto Differentialon 05-67-5169Mnmemocq Eos #0.11B[facility] MERCY HEALTHAbsolute Immature Granulocyte0.00B[facility] MERCY HEALTHAbsolute Lymph #1.54B[facility] MER[facility] HEALTHAbsolute Prentiss #0.51[facility] LIMABasophils (Bld) [#/Vol]0.06 10*3/uLBON SECOURS MERCY HEALTHBasophils/100 WBC (Bld)1 %0 - 2 %[facility] LIMAEosinophils/100 WBC (Bld)2 %1 - 4 %[facility] Hematocrit (Bld) [Volume fraction]44.4 %36.3 - 47.1 %[facility] Hemoglobin (Bld) [Mass/Vol]14.3 g/dL11.9 - 15.1 g/dLBON [facility] Immature granulocytes/100 WBC (Bld)0 %0B[facility] MERCY HEALTHLymphocytes/100 WBC (Bld)27 %24 - 43 %[facility] LIMAMCH (RBC) [Entitic mass]30.3 pg 25.2 - 33.5 pgBON MERCY HOSPITALHC (RBC) [Mass/Vol]32.2 g/dL28.4 - 34.8 g/dLBON MERCY HOSPITALV (RBC) [Entitic vol]94.1 fL82.6 - 102.9 fLCENTRA VIRGINIA BAPTIST HOSPITALMonocytes/100 WBC (Bld)9 %3 - 12 %[facility] Morphology Nick (Bld) [Interp]Platelet scan shows Normal PlateletsCENTRA VIRGINIA BAPTIST HOSPITALNRBC Automated0.00.0 per 100 WBCCENTRA VIRGINIA BAPTIST HOSPITALPlatelet distribution width (Bld) [Ratio]12.2 %11.8 - 14.4 %[facility] Platelets (Bld) [#/Vol]See Reflexed IPF ResultBON ZANESVILLE CITY HOSPITALRBC (Bld) [#/Vol]4.72 10*6/uL3.95 - 5.11 m/uLBON ZANESVILLE CITY HOSPITALSegmented neutrophils/100 WBC (Bld)61 %36 - 65 %CENTRA VIRGINIA BAPTIST HOSPITALSegs Absolute3.48 CEN[facility] VIR[facility] BAPTIST HOSPITALWBC (Bld) [#/Vol]5.7 10*3/uLBON SIOUXLAND SURGERY CENTERImmature Platelet Fractionon 48-42-8866Jhgnqsjj, Mjbbpxokecck798RIE Z[facility]VIL[facility] CITY HOSPITALPlatelet, Immature Fraction7.5 %1.1 - 10.3 %[facility] CENTERLaboratory - Chemistry and Chemistry - challengeon 22-79-8011BKO/1.73 sq M.predicted MDRD (S/P/Bld) [Vol rate/Area][facility] HOSPITALComment on above:Average GFR for 30-39 years old: 107 mL/min/1.73sq m Chronic Kidney Disease: <60 mL/min/1.73sq m Kidney failure: <15 mL/min/1.73sq m eGFR calculated using average adult body mass. Additional eGFR calculator available at: http://www.[employer].Mobile Captain/multiple_crcl_2011.htm Stage 1: Some kidney damage normal GFR Stage 2: Mild kidney damage GFR 60-89 Stage 3: Moderate kidney damage GFR 30-59 Stage 4: Severe kidney damage GFR 15-29 Stage 5: Severe kidney damage GFR <15 ESRD - chronic treatment by dialysis or transplant XR ANKLE RIGHT (MIN 3 VIEWS)on 19-37-9379Bs acute osseous or soft tissue abnormality. [facility] CONSOLIDATEDEXAMINATION: THREE XRAY VIEWS OF THE RIGHT ANKLE 05/23/2022 10:16 am COMPARISON: None. HISTORY: ORDERING SYSTEM PROVIDED HISTORY: fall TECHNOLOGIST PROVIDED HISTORY: fall FINDINGS: There is no acute osseous abnormality. The joint spaces are maintained. The surrounding soft tissues are unremarkable. [facility] Jagdish Rashid MD - 05/23/2022 EXAMINATION: THREE XRAY VIEWS OF THE RIGHT ANKLE 05/23/2022 10:16 am COMPARISON: None. HISTORY: ORDERING SYSTEM PROVIDED HISTORY: fall TECHNOLOGIST PROVIDED HISTORY: fall FINDINGS: There is no acute osseous abnormality. The joint spaces are maintained. The surrounding soft tissues are unremarkable. IMPRESSION: No acute osseous or soft tissue abnormality. [employer] Phone: radiology Study observation (narrative)[employer] Phone: XR ANKLE RIGHT (MIN 3 VIEWS)Ordered By: Jagdish Cm on 48-22-7839ZNT [employer] Phone: XR FOOT RIGHT (MIN 3 VIEWS)on 05-05-8742Trpgpxa fracture of the 5th metatarsal. [facility] CONSOLIDATEDEXAMINATION: THREE XRAY VIEWS OF THE RIGHT FOOT 05/23/2022 10:16 am COMPARISON: None. HISTORY: ORDERING SYSTEM PROVIDED HISTORY: fall TECHNOLOGIST PROVIDED HISTORY: fall FINDINGS: There is an oblique fracture of the 5th metatarsal. The joint spaces are maintained. There is diffuse soft tissue swelling. [facility] Jagdish Fierro MD - 05/23/2022 EXAMINATION: THREE XRAY VIEWS OF THE RIGHT FOOT 05/23/2022 10:16 am COMPARISON: None. HISTORY: ORDERING SYSTEM PROVIDED HISTORY: fall TECHNOLOGIST PROVIDED HISTORY: fall FINDINGS: There is an oblique fracture of the 5th metatarsal. The joint spaces are maintained. There is diffuse soft tissue swelling. IMPRESSION: Oblique fracture of the 5th metatarsal. [employer] Work Phone: bON Lece[employer] Work Phone: radiology Study observation (narrative)[employer] Work Phone: pAP ACOG PANEL 2: 30 to 65on 05-14-2022..NormalThe [facility] & Brentwood HospitalComment on above:Result Comment: Performed at: WBPerformed By: #### [id number] #### [facility] [address] [place] [address] Dr. Mara GordonAge Gdln ACOG Skxxzmi74-85HdhybeBvmBethesda North Hospital on above:Performed By: #### [id number] #### [facility] [address] [place] [address] Dr. Mara GordonDIAGNOSIS:CommentBethesda North Hospital on above: Result Comment: NEGATIVE FOR INTRAEPITHELIAL LESION OR MALIGNANCY. Performed at: WBPerformed By: #### [id number] #### [facility] [address] [place] [address] Dr. Mara GordonHPV AptimaNegativeNormalNegativeUniversity Hospitals TriPoint [facility] on above:Result Comment: This nucleic acid amplification test detects fourteen high-risk HPV types (16,18,31,33,35,39,45,51,52,56,58,59,66,68) without differentiation. Performed at: =GPerformed By: #### [id number] #### [facility] [address] [place] [address] Dr. Mara GordonMethodology:CommentBethesda North Hospital on above: Result Comment: This liquid based ThinPrep(R) pap test was screened with the use of an image guided system. Performed at: WBPerformed By: #### [id number] #### [facility] [address] [place] [address] Dr. Mara GordonNote:CommentBethesda North Hospital on above:Result Comment: The Pap smear is a screening test designed to aid in the detection of premalignant and malignant conditions of the uterine cervix. It is not a diagnostic procedure and should not be used as the sole means of detecting cervical cancer. Both false-positive and false-negative reports do occur. . Performed at: WBPerformed By: #### [id number] #### [facility] [address] [place] [address] Dr. Mara GordonPerformed by:CommentMemorial Health System Selby General HospitalComup health system on above: Result Comment: Mike Cheatham, Fabrication Manager (ASCP) Performed at: WBPerformed By: #### [id number] #### [facility] [address] [place] [address] Dr. Mara GordonSpecimen adequacy:[facility] on above:Result Comment: Satisfactory for evaluation. Endocervical and/or squamous metaplastic cells (endocervical component) are present. Performed at: WBPerformed By: #### [id number] #### [facility] [address] [place] [address] Dr. Mara Gordon Vital Signs Date TimeVital SignValuePerforming UhzarndliXosumupa45-41-7703 16:57-0500Body mass index (BMI) [Ratio]35.71 kg/m2Annel LOVE Work Phone: [facility] HospitalQqnchthyqx75-69-6732 16:57-0500Body .42 kgAnnel LOVE Work Phone: [facility] HospitalQaikmoydeu58-14-8911 16:57-0500Diastolic blood jtwgutjf75 mm[Hg]Annel LOVE Work Phone: [facility] HospitalZikrynrhyt31-14-5559 16:57-0500Systolic blood dofroaqx389 mm[Hg]Annel LOVE Work Phone: [facility] HospitalIwesgewmvq83-30-3121 19:09-0400Body egzprx621.2 Barney Gill MD Work Phone: [facility]10-17-2024 19:09-0400Body mass index (BMI) [Ratio]31.32 kg/v5Hnkrvdr Gill MD Work Phone: Bon [facility] CenterOnRequest Images [facility] YoungstownOlpner09-33-1121 19:09-0400Body axcjwakfdfb04.2 [degF]Montana Gill MD Work Phone: Bon [facility]10-17-2024 19:09-0400Body fkosnh01.72 kgMontana Gill MD Work Phone: [facility]10-17-2024 19:09-0400Diastolic blood mnvoklln29 mm[Hg]Montana Gill MD Work Phone: [facility] CenterOn[facility] Images [facility] YoungstownCsrzrz90-95-4545 19:09-0400Heart rate79 /minMontana Gill MD Work Phone: [facility] CenterOn[facility] Images [facility] YoungstownHxdeaq39-38-6095 19:09-0400 Respiratory rate16 /minMontana Gill MD Work Phone: [facility] CenterOnRequest Images [facility] YoungstownKbdldn30-63-6408 19:09-1318OnI0% (BldA) [Mass fraction]100 %Montana Gill MD Work Phone: [facility] CenterOnRequest Images [facility] YoungstownTxfdhh57-90-6702 19:09-0400Systolic blood rlbvdioi897 mm[Hg]Montana Gill MD Work Phone: [facility] CenterOnRequest Images [facility] YoungstownRqiaqn96-69-3620 18:15-0400Diastolic blood nuoyktrk85 mm[Hg]Flavio Amaya DPM Work Phone: GON [facility]ENTERProfind [facility] HOSPITALKUADQP76-72-3825 18:15-0400Heart rate78 /Micah Amaya DPM Work Phone: OON [facility]ENTERProfind [facility] HOSPITALGFZLJX20-22-1981 18:15-0400 Respiratory rate8 /Micah Amaya DPM Work Phone: [phone] [facility]ENTERProfind [facility] HOSPITALNFSHCB51-65-4863 18:15-3317LtG0% (BldA) [Mass fraction]93 %Flavio Amaya DPM Work Phone: [phone] [facility]08-22-2022 18:15-0400Systolic blood befacahr255 mm[Hg]Flavio Amaya DPM Work Phone: B [facility]08-22-2022 17:45-0400Body camtpzwxubn58.01 [degF]Flavio Amaya DPM Work Phone: P [facility]08-22-2022 14:38-0400Body jyyowt129.2 cmSomar Amaya DPM Work Phone: [phone] [facility]08-22-2022 14:38-0400Body mass index (BMI) [Ratio]33.36 kg/h9YkgqbFlavio Amaya DPM Work Phone: S [facility]08-22-2022 14:38-0400Body .62 kgFlavio Amaya DPM Work Phone: F [facility]08-18-2022 10:02-0400Body cbvkao823.2 cmRdennis Gill MD Work Phone: [facility]08-18-2022 10:02-0400Body mass index (BMI) [Ratio]31.32 kg/s8EvouyyxMontana Gill MD Work Phone: [facility]08-18-2022 10:02-0400Body phukygtlxya51.8 [degF]Montana Gill MD Work Phone: [facility]08-18-2022 10:02-0400Body .72 Jacqueline Gill MD Work Phone: [facility]08-18-2022 10:02-0400Diastolic blood hdczlowk51 mm[Hg]Montana Gill MD Work Phone: [facility]08-18-2022 10:02-0400Heart rate83 /Buddy Gill MD Work Phone: [facility]08-18-2022 10:02-0400 Respiratory rate16 /Buddy Gill MD Work Phone: bon [facility] CENTERAngkor Residences08-18-2022 10:02-2836JsT0% (BldA) [Mass fraction]100 %Montana Gill MD Work Phone: bon [facility]08-18-2022 10:02-0400Systolic blood csrzblom757 mm[Hg]Montana Gill MD Work Phone: [facility] Encounters Encounter DateEncounter TypeCare ProviderFacilityStart: 01-17-2025 End: 35-55-0968Xvstkuorc Result EncounterCorey Mehdi DO Work Phone: [facility] External Department UnsolicitedStart: 01-17-2025 End: 90-32-6951Ikcualvvg Result EncounterCorey Mehdi DO Work Phone: noms External Department UnsolicitedStart: 08-09-2024 End: 45-02-2245Aoqiocv encounter procedureAnnel LOVE Work Phone: [facility] HealthcareStart: 08-09-2024 End: 93-64-8152Zhhfhwkj preventive med est patient 18-39 yrsAnnel LOVE Work Phone: [facility] BCP OBComment on above:Well woman exam with routine gynecological examStart: 08-09-2024 End: 29-14-2521djgujshseuQZD RAMEYNot AvailableStart: 08-09-2024 End: 31-57-9733Vifdad flowsheetAnnel LOVE Work Phone: [facility] BCP OBStart: 08-09-2024 End: 53-85-8748Mvlxxx flowsheetAnnel LOVE Work Phone: [facility] BCP OBStart: 08-09-2024 End: 70-64-5940Znytqhebd Result EncounterAnnel LOVE Work Phone: [facility] External Department UnsolicitedStart: 07-22-2024 End: 14-65-3047Ddxfgeqgi department patient visitMONTANA YORKOhio State University [facility] EDComment on above:Laceration of right little finger without foreign body without damage to nail, initial encounter (Primary Dx)Start: 04-05-2024 End: 13-19-4024dmjnkshmcsVBNMR FAZIONot AvailableStart: 01-13-2024 End: 61-85-4269Tlgyaiutf Result EncounterCorey Mehdi DO Work Phone: noms External Department UnsolicitedStart: 01-13-2024 End: 60-56-9718Tlyhbpsdd Result EncounterCorey Mehdi DO Work Phone: noms External Department UnsolicitedStart: 01-10-2023 End: 76-35-0970kkzhbrpzxsLM SHWETHA VILLA .Facility:L1Wlrsv: 05-27-2022 End: 09-11-2965tkwrmbrevaQWDQBSeven Clark HospitalStart: 05-27-2022 End: 61-81-2544Vnnhhnerlu hospital visit by Omi Amaya DPM Work Phone: mWHZ ORStart: 05-27-2022 End: 84-96-2634oglmoizqqpZYTL E JAUREGUIMeranand Thomaston HospitalStart: 05-24-2022 End: 76-89-1725Nydnyqdkxq hospital visit by physicianMontana Gill MD Work Phone: mthz LaboratoryStart: 05-23-2022 End: 73-02-8402Izkndyjpd department patient visitRutimoteo Gill MD Work Phone: [facility]py [facility] EDComment on above:Closed fracture of right foot, initial encounter (Primary Dx)Start: 05-10-2022 End: 90-16-7318ukdgmztkejSN SHWETHA VILLA .Facility:H1 Procedures DateProcedureProcedure DetailPerforming ClinicianStart: 48-01-1432AI TOMOSYNTHESIS SCREENING BICorey Mehdi DO Work Phone: Start: 84-99-9784ZhjuauouzyrBxidz Mehdi DO Work Phone: Start: 64-30-5496OBR,APTIMA HPV,AGE GDLNAmy Misael PA Work Phone: Start: 98-64-8481Mgvrhlsugnz observation [Identifier] in Cervix by Cyto stainAnnel LOVE Work Phone: Start: 49-89-2397VA TOMOSYNTHESIS SCREENING BICorerachell Harding DO Work Phone: Start: 04-05-9224AtonvrdahpxKaq Ramey PA Work Phone: Start: 89-68-5078Cinktbuqmlq observation [Identifier] in Cervix by Cyto stainAnnel LOVE Work Phone: Start: 39-63-8982Beoo cerv/vag auto thin layer prep mnl screenCorey Mehdi DO Work Phone: Start: 40-12-0030Najrckdcjix up to 1 hour physician/qhp timeSomar Amaya DPM Work Phone: start: 56-40-2807Lclsa test visual color cmprsn methsSomar Amaya DPM Work Phone: start: 79-76-3851Bmizc metabolic panel calcium total Flavio Amaya DPM Work Phone: start: 91-81-0872ERNOPXXP PLATELET FRACTIONSomar Amaya DPM Work Phone: start: 69-46-3838EZIBUR APPLICATIONTifcarrie Abdi SPRUE KNOCKER - SERVICE UNIT OPERATOR Work Phone: Start: 05-23-2022 End: 47-09-3671Ljuea ankle complete minimum 3 viewsSonya Merchant MD Work Phone: Plan of Treatment DateCare ActivityDetailAuthorStart: 21-20-9341AOfQ/Tdap/Td vaccine (2 - Td or Tdap)DTaP/Tdap/Td vaccine (2 - Td or Tdap)[facility] CenterStart: 26-87-3886Jbjdeehyx for malignant neoplasm of cervixNOMS HealthcareStart: 93-50-9074Sjnbbhobr for malignant neoplasm of cervixNOMS HealthcareStart: 08-17-2025 End: 82-35-7124Kxixyca encounter procedureNOGARDNER SANITARIUM OBStart: 12-78-7132Tmhkcbdra vaccinationInfluenza Vaccine (Season Ended)[facility] HealthcareStart: 01-12-2025 Screening for malignant neoplasm of breastMammogramDAVIS HOSPITAL AND MEDICAL [facility]ENTER HealthcareStart: 87-74-2118Gdaxefzag for malignant neoplasm of breastBreast cancer screenBon [facility] CenterStart: 08-09-2024 End: 53-27-1377Wnfhtjf encounter abdbmkgxq28/04/2024 4:00 PM EST Office Visit [facility] [address] [place] [address] Annel Garvin PA [address] [place] [address] ArrivedNOGARDNER SANITARIUM OBComment on above:ArrivedStart: 2024 COVID-19 Vaccine ( season)COVID-19 Vaccine ( season)[facility] HospitalStart: 03-29-2519Lianuwptl vaccinationInfluenza Vaccine (#1) [facility] HospitalStart: 38-04-4537Gxzaldewv vaccinationFlu vaccine (#1)[facility]art: 50-68-7089Yfygg panelLipidsCarilion Clinicart: 26-55-6205Ljvziitwn vaccinationFlu vaccine (#1)[facility] Systemart: 05-27-2022 End: 26-11-1124Ibtcaxymj to same day surgery whafed3905/27/2022 Surgery IP Unit Flavio Amaya, [address] [place] [address] ORIF OF FIFTH METATSRSAL FRACTURE RIGHT FOOTMWHZ ORComment on above:ORIF OF FIFTH METATSRSAL FRACTURE RIGHT FOOTStart: 05-27-2022 End: 66-57-3592Grko treatment metatarsal fracture [facility] Hospitaltart: 26-79-1683Cijfykfssd hospital visit by wbseptbnj77/22/2022 Hospital Encounter IP Unit Flavio Amaya, DPVandana [address] [place] [address] MWHZ ORStart: 05-27-2022 End: 82-94-3253Xnadjrb encounter xgwhgjadv04/22/2022 Appointment Pre-Admission TestingMWHZ PRE ADMITStart: 73-07-9798Nbqbasae screenDiabetes screenRiverside Health Systemart: 96-35-6335Hirccvgvz for malignant neoplasm of cervixRiverside Health Systemart: 06-76-4255Chextlzgx for malignant neoplasm of cervix Pap smearRiverside Health Systemart: 13-32-9307VGuD/Tdap/Td vaccine (1 - Tdap)DTaP/Tdap/Td vaccine (1 - Tdap)[facility] Systemart: 2002 Hepatitis B vaccine (1 of 3 - 19+ 3-dose series)Hepatitis B vaccine (1 of 3 - 19+ 3-dose series)[facility]art: 47-26-0543Garukkodj C screening Hepatitis C screenCarilion [facility]: 44-67-1007QHO screeningHIV [facility] Hospitalart: 12-64-6201Twlufzfht vaccine (1 of 2 - 13+ 2-dose series)Varicella vaccine (1 of 2 - 13+ 2-dose series)[facility]: 90-65-4626Piywqkeflj ScreenDepression [facility]art: 95-70-8054Ypmrqxztp vaccine (1 of 2 - 2-dose childhood series) Varicella vaccine (1 of 2 - 2-dose childhood series)[facility] Start: 19-44-7009AHKAQ-19 Vaccine (#1)COVID-19 Vaccine (#1)[facility] HOSPITALOxygen therapy [Minimum Data Set]Initiate Oxygen Therapy Protocol Respiratory Care Routine As Needed until discontinued starting 05/27/2022[facility] Work Phone: comment on above:As Needed until discontinued starting 05/27/2022plint ApplicationSplint Application Procedures Routine 05/23/2022 11:34 AM EDTBLEWISGALE HOSPITAL PULASKI Work Phone: THIN PREP TIS PAP AND HR HPV DNATHIN PREP TIS PAP AND HR HPV DNA Pathology and Cytology Routine Well woman exam with routine gynecol ogical exam Ordered: 08/09/2024[facility] Work Phone: comment on above:Ordered: 08/09/2024 Immunizations Immunization DateImmunizationNotesCare OocobrsqQotlyyxj02-36-9666bppcjcb toxoid, reduced diphtheria toxoid, and acellular pertussis vaccine, Kelly Gill MD Work Phone: Bon [facility] Payers DatePayer CategoryPayerPolicy [id number] Health Insurance [id number] [id number] [id number] [id number] Social History DateTypeDetailFacilityTobacco smoking status NHISTobacco smoking consumption unknownC[facility] Work Phone: start: 74-89-1877Ukd Assigned At BirthNot on fileCARILION CLINIC Syntervention Work Phone: start: 05-13-2022 End: 95-36-6857Pptindke to SARS-CoV-2 (event)Not sureDICKENSON COMMUNITY HOSPITALZelnas Phone: start: 05-27-2022 End: 28-73-1263Fqbwnxe smoking status NHISNever smoked tobaccoCENTRA VIRGINIA BAPTIST HOSPITALStart: 33-80-5107Ovqzzfw use and exposureSmokeless tobacco non-userCARILION CLINIC Syntervention Work Phone: start: 89-59-7601Xpwpgcubg beverage intakeEx-drinker (finding)[facility] HospitalStart: 05-29-2022 End: 36-98-7197Ozgpfwl of Social functionBuchanan General HospitalStart: 05-29-2022 End: 50-20-2116Skbosam use [facility] HospitalStart: 50-22-7921Bsbqouu CommentsociallyBuchanan General HospitalStart: 07-23-2023 End: 88-09-5816Ianphhlsz beverage intakeNot AskedDA[facility] HealthcareStart: 80-97-3064Niflnvi CommentoccasionalDAVIS HOSPITAL AND MEDICAL [facility]ENTER HealthcareStart: 52-03-6842OanYgndukYJFW Healthcare Medical Equipment Procedure CodeEquipment CodeEquipment Original TextEquipment IdentifierDatesWire Fix 1.6x150 Mm Trocar Pt On Both Ends Ss Ns J Luis - [id number] Start: Gauge [id number]: 56-09-2720Ezplurb on above: Description: 24 Gauge wire- peel packed; brigid supply. No expiration date, no lot number. [id number]. [facility] #1 Not charged because of our own stock was used History of Present illness Narrative 08-09-2024 Note Date & MfvgUxjmHmeimddz80-06-9409 History of Present illness Narrative* KATE Apodaca - 08/09/2024 4:00 PM EST Reason for Appointment: Patient ID: Presley Fong is a 39 y.o. female who presents for Gynecologic Exam Patient presents today for Annual Exam. MEDICATIONS Current Outpatient Medications Medication Instructions albuterol HFA 90 mcg/act inhaler inhale 1 to 2 puffs by mouth and INTO THE LUNGS three times a day if needed cefuroxime (CEFTIN) 250 mg, 2 times daily [facility] Mucus Extended Release 600 mg, 2 times daily escitalopram (LEXAPRO) 10 mg, Oral, Daily norethindrone-ethinyl estradiol (Necon ) 0.5/0.75/1-35 MG-MCG tablet Oral ALLERGIES No Known Allergies PROBLEMS Active Ambulatory Problems Diagnosis Date Noted No Active Ambulatory Problems Resolved Ambulatory Problems Diagnosis Date Noted No Resolved Ambulatory Problems Past Medical History: Diagnosis Date 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 Encounter for gynecological examination (general) (routine) without abnormal findings Obesity HISTORY PAST MEDICAL HISTORY SOCIAL HISTORY Past Medical History: Diagnosis Date 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 Encounter for gynecological examination (general) (routine) without abnormal findings Obesity (BMI 30-39.9) Social History Tobacco Use Smoking status: Never Smokeless tobacco: Not on file Substance Use Topics Alcohol use: Not on file Comment: occasional Drug use: Never FAMILY HISTORY Family History Problem Relation Name Age of Onset Heart disease Mother Hyperlipidemia Mother Hypertension Mother Hypertension Father Hyperlipidemia Father Heart disease Father Breast cancer Sister Breast cancer Father's Sister Hypertension Maternal Grandmother Heart disease Maternal Grandmother Heart disease Paternal Grandmother Hyperlipidemia Paternal Grandmother Hypertension Paternal Grandmother Cancer Paternal Grandmother Heart disease Paternal Grandfather Stroke Paternal Grandfather SURGICAL HISTORY Past Surgical History: Procedure Laterality Date FOOT SURGERY Right 05/2022 5th vicente- pins and wires MOLE REMOVAL MOUTH SURGERY REVIEW OF SYSTEMS Review of Systems: Review of Systems Constitutional: Negative. HENT: Negative. Eyes: Negative. Respiratory: Negative. Cardiovascular: Negative. Gastrointestinal: Negative. Genitourinary: Negative. Musculoskeletal: Negative. Skin: Negative. Neurological: Negative. All other systems reviewed and are negative. Hematological: Negative. Endocrine: Negative. Allergic/Immunologic: Negative. OBJECTIVE Objective: Physical Exam Constitutional: Appearance: Normal appearance. She is well-developed. Genitourinary: Vulva normal. Right Adnexa: not tender and no mass present. Left Adnexa: not tender and no mass present. No cervical discharge. Breasts: Breasts are soft. Right: Normal. Left: Normal. HENT: Head: Normocephalic. Nose: Nose normal. Mouth/Throat: Mouth: Mucous membranes are moist. Cardiovascular: Rate and Rhythm: Normal rate and regular rhythm. Pulmonary: Effort: Pulmonary effort is normal. Breath sounds: Normal breath sounds. Abdominal: General: Bowel sounds are normal. There is no distension. Palpations: Abdomen is soft. Tenderness: There is no abdominal tenderness. There is no guarding or rebound. Musculoskeletal: General: No swelling. Normal range of motion. Cervical back: Normal range of motion. Right lower leg: No edema. Left lower leg: No edema. Neurological: General: No focal deficit present. Mental Status: She is alert and oriented to person, place, and time. Skin: General: Skin is warm and dry. Psychiatric: Mood and Affect: Mood normal. Behavior: Behavior normal. Vitals and nursing note reviewed. Exam conducted with a director of engineering present. Vitals: Estimated body mass index is 36.15 kg/m as calculated from the following: Height as of 04/05/24: 5' 7 . Weight as of 04/05/24: 230 lb 12.8 oz. BP: No LMP recorded. ASSESSMENT & PLAN ICD-10-CM 1. Well woman exam with routine gynecological exam Z01.419 THIN PREP TIS PAP AND HR HPV DNA Annual: Patient presents today for an annual exam. Patient states she is doing well and has no complaints. Pap was obtained without difficulty and patient had her mammogram done on 01/13/2024. No orders of the defined types were placed in this encounter. Follow Up: Patient is to return in one year for annual unless needed otherwise. Documented by Ann Marie Veras MA on behalf of: KATE Apodaca documented [facility]Prov[facility] 07-22-2024 Note Date & RaeaFitcDjwiallt01-50-9962 Hospital Discharge instructions* Discharge Instructions* Migdalia Auguste APRN - SERVICE UNIT OPERATOR - 07/22/2024 8:55 PM EDT Keep wound as clean and dry as possible. Suture removal in 10 to 14 days. Return for signs of infection which include redness, swelling or drainage at the laceration site. * Attachments The following attachments cannot be sent through Care Everywhere. * Hand Laceration: Stitches ([place]) documented in this encounterSentara [facility] 05-27-2022 Note Date & JgreQefpDwpcgfzl09-51-1431 Hospital Discharge instructions* Discharge Instructions* Flavio Amaya DPM - 05/27/2022 5:44 PM EDT 1. Keep the surgical dressing and splint clean, dry, and intact 2. Elevate the operative extremity above heart level when seated or lying 3. Place ice behind the knee of the operative extremity 20 minutes per hour while awake 4. Strict nonweightbearing on the operative extremity documented in this encounterCENTRA V[facility] Work Phone: History of Present illness Narrative 05-27-2022 Note Date & FlbkHvopUwzocjyi62-97-9683 History of Present illness Narrative* Savannah Iqbal RN - 05/27/2022 4:28 PM EDT Discharge Criteria Outpatients must meet criteria 1 [...] require patient to operate motor Vehicle. Yes * Polly San RN - 05/24/2022 2:10 PM EDT [facility] Preadmission Testing Name: Presley Palomo Covert : 1985 Patient (home) Procedure: ORIF OF [...] Take [x] Ride Home [x]No Jewelry/Contact Lenses/Nail Lithuanian [] Prep/Lax/Clear Liquids [x] Chlorhexidene DOS Patient Needs [x] HCG [] Blood Sugar [] PT/INR [] T&S COVID Vaccinated? [] Yes [x] No Patient instructed on the pre-operative, intra-operative, and post-operative process? Yes Medication instructions reviewed with patient? Yes documented in this encounterSent[facility] Phone: Hospital Discharge instructions 05-23-2022 Note Date & QncnYqglTxflgvdr21-71-9620 Hospital Discharge instructions* Discharge Instructions* JENNIFER Shea CNP - 05/23/2022 11:00 AM EDT Use the [...] applied by Dr. Nicolas at your appointment. * Attachments The following attachments cannot be sent through Care Everywhere. * Foot Fracture ([place]) documented in this encounterSentara [facility] Hospital Phone: Evaluation note Note Date & TypeNoteFacilityEvaluation note* Diagnosis Closed fracture of right foot, initial encounter- Primary documented in this encounter [facility] Lece[facility] Work Phone: Evaluation note Note Date & TypeNoteFacilityEvaluation note* Diagnosis Laceration of right little finger without foreign body without damage to nail, initial encounter- Primary documented in this encounter [facility] Radiant [employer] Evaluation note Note Date & TypeNoteFacilityEvaluation note* Diagnosis Well woman exam with routine gynecological exam Routine gynecological examination documented in this encounter [facility] Advance Directives Code StatusDate ActivatedDate InactivatedCommentsFull Code05/27/2022 2:18 PMDate ActivatedDate InactivatedComments05/27/2022 2:18 PM05/27/2022 9:40 PM Summary Purpose Family History No Family History Records FoundNo Family History Records FoundNo Family History Records FoundNo Family History Records Found Additional Source Comments Reason for Visit (unrecogniz ed section and content) ReasonCommentsFoot InjuryPt fell off a stool landing wrong on right foot. Pt reports unable to bear wt. Pt reports no other injuries. Ice pack applied in triageSpecialtyDiagnoses / ProceduresReferred By ContactReferred To Contact Diagnoses Closed displaced fracture of fifth metatarsal bone of right foot with routine healing, subsequent encounter Closed displaced fracture of fifth metatarsal bone of right foot with routine healing, subsequent encounter [S32.503G] Procedures OPEN TREATMENT METATARSAL FRACTURE EACH ORIF OF FIFTH METATSRSAL FRACTURE RIGHT FOOT Flavio Amaya, DPVandana [address] [place] [address] [facility]ITALTechn[facility] [address] [place] [address] Referral IDStatusReasonStart DateExpiration DateVisits RequestedVisits [id number]Wthdzutpsu to 5th digit from slicing finger across metal of stove around 1700.ReasonCommentsGynecologic Exam Ordered Prescriptions (unrec ognized section and content) PrescriptionSigDispensedRefillsStart DateEnd Date traMADol (ULTRAM) 50 MG tablet Indications:Closed fracture of right foot, initial encounterTake 1 tablet by mouth every 6 hours as needed for Pain for up to 3 days. Intended supply: 5 days. Take lowest dose possible to manage pain 12 tablet /208/ Care Teams (unrecognized sec tion and content) Team MemberRelationshipSpecialtyStart DateEnd Date Montana Gill MD [address] [place] [id number] PCP - GeneralFamily Medicine05/23/22Team MemberRelationshipSpecialtyStart DateEnd Date Montana Gill MD [address] [place] [address] PCP - Generalmily Medicine05/23/22Team MemberRelationshipSpecialtyStart DateEnd Date Montana Gill MD [address] [place] [place] [address] PCP - GeneralFamily Medicine05/23/22Team MemberRelationshipSpecialtyStart DateEnd Date Montana Gill MD PCP - GeneralFamily Medicine05/23/22Team MemberRelationshipSpecialtyStart DateEnd Date Montana Gill MD PCP - GeneralFamily Rtwxdzfj42/18/23Team MemberRelationshipSpecialtyStart Date End Date Montana Gill MD PCP - GeneralFamily Pqbxchtf63/18/23Team MemberRelationshipSpecialtyStart Date End Date Montana Gill MD PCP - GeneralFamily Aekcilvb01/18/23Team MemberRelationshipSpecialtyStart Date End Date Montana Gill MD PCP - GeneralFamily Soxcikcj16/18/23 Scheduled Active and Recently Administ ered Medications (unrecognized section and content) Medication Order// ceFAZolin (ANCEF) 2000 mg in dextrose 3 % 50 mL IVPB (duplex) (COMPLETED) 2,000 mg, IntraVENous, APPLICATION INTEGRATION SPECIALIST TO O.R., 1 dose, On Fri05/27/22 at 1445, Antimicrobial Indications: Surgical Prophylaxis, Administer within 1 hour prior to incision. Recommend to repeat in 3-4 hours after initial dose if still intra- op., Pre-op (day of surgery) * 1618 (New Bag - Provider: Michel Aguiar RN) * 1648 (Due: Stopped - Provider: Michel Aguiar RN) HYDROcodone-acetaminophen (NORCO) 5-325 MG per tablet 2 tablet (COMPLETED) 2 tablet, Oral, ONCE, 1 dose, On Fri05/27/22 at 1900, Maximum dose of acetaminophen is 4000 mg fromall sources in 24 hours. * 1844 (Given - Provider: Savannah Iqbal, CARLOS) sodium chloride flush 0.9 % injection 5-40 mL 5-40 mL, IntraVENous, EVERY 12 HOURS SCHEDULED (2 times per day), First dose on Fri05/27/22 at 2100, Until Discontinued, For Line Patency: Peripheral IV = 5 mL; Midline or Central Line = 10 mL/lumen.If following IV push medication, administer flush at same rate as the IV push. Flush volume is determined by type of infusion therapy being given. For non-viscous solutions use: Peripheral IV = 5 mL Midline or Central Line = 10 mL/lumen For viscous solutions (i.e. blood components, parenteral nutrition, contrast media, or after obtaining blood sample) use: Peripheral IV = 10 mL Midline or CentralLine = 20 mL/lumen, Pre-op (day of surgery) * 2100 (Due) Medication Order// lactated ringers infusion IntraVENous, at 125 mL/hr, CONTINUOUS, Starting on Fri05/27/22 at 1445, Pre-op (day of surgery) * 1443 (New Bag - Provider: Polly San RN) * 1628 (NoRateChange - Provider: Juan Daniel Jain APRN - CHROME TANNING DRUM OPERATOR) * 1723 (New Bag - Provider: JENNIFER Reese CRNA) Medication Order/ bupivacaine (MARCAINE) 0.5 % injection (CANCELED) PRN, Starting on Fri05/27/22 at 1725, Until Fri05/27/22 at 1754, Intra-op * 1725 (Given - Provider: Flavio Amaya DPM - Comment: 30mL given up to sterile field. 20mL used.) sodium chloride 0.9 % irrigation (COMPLETED) CONTINUOUS PRN, Starting on Fri05/27/22 at 1726, Intra-op * 1726 (New Bag - Provider: Flavio Amaya DPM - Comment: used as irrigation furing procedure per ) sodium chloride flush 0.9 % injection 5-40 [...] For viscous solutions (i.e. blood components, parenteral nutrition,contrast media, or after obtaining blood sample) use: Peripheral IV = 10 mL Midline or Central Line= 20 mL/lumen, Pre-op (day of surgery) Medication Order/ lidocaine PF 1 % injection 2 mL (COMPLETED) 2 mL, IntraDERmal, ONCE, 1 dose, On Lilly 07/22/24 at 2015 * 2017 (Given - Provider: Caterina Zurita RN - Comment: right fifth digit) INFORMATION SOURCE (unrecogn ized section and content) DATE CREATED AUTHOR 05/30/2022 [facility] DATE CREATED AUTHOR AUTHOR'S ORGANIZ ATION 01/19/2023 [facility] DATE CREATED AUTHOR AUTHOR'S ORGANIZ ATION 07/25/2024 [facility] DATE CREATED AUTHOR AUTHOR'S ORGANIZ ATION 08/11/2024 [facility] FOR RECORDS PERTAINING TO PATIENTS WHO ARE [...] BE BASED ON THE PRIMARY CLINICAL RECORDS. [employer] [facility]. provides no warranty or guarantee of the accuracy or completeness of information in this document.
--- OUTSIDE RECORDS SUMMARY | 2025-09-07 19:28 | XMS_ITS | Encounter Summary ---
Author Organization [facility] Address [address] [place] [address] Care Team Providers Care Customer Quality Engineer Name Role Phone Montana Gill MD Primary Care Provider [phone] Encounter Details DateTypeDepartmentCare Team (Latest Contact Info)Opipqkezizw90/03/2025amboo flowsheet [facility] [address] [place] [address] Annel Douglas PA [address] [place], [facility] Social History Tobacco UseTypesPacks/DayYears UsedDateSmoking Tobacco: NeverAlcohol UseStandard Drinks/WeekCommentsNot Asked0 (1 standard drink = 0.6 oz pure alcohol)occasional CommentsNoSex and Gender InformationValueDate RecordedSex Assigned at BirthNot on fileLegal WboDrzygv91/15/2023 11:47 PM EDTGender IdentityNot on file Sexual OrientationNot on filedocumented as of this encounter Plan of Treatment DateTypeDepartmentCare Team (Latest Contact Info)Sjfwryikhlt79/21/2026 4:00 PM ESTProcedure Visit [facility] [address] [place] [address] Tato Harding DO [address] [place], [facility]11 documented as of this encounter Visit Diagnoses Not on filedocumented in this encounter Care Teams Team MemberRelationshipSpecialtyStart DateEnd Date Montana Gill MD [address] [place] [address] PCP - GeneralFamily Bltxtldu27/18/23documented as of this encounter
--- OUTSIDE RECORDS SUMMARY | 2025-09-07 19:28 | XMS_ITS | Clinical Summary ---
Author Organization [facility] Address [address] [place] [address] Care Team Providers Care Fly Winder Name Role Phone Montana Gill MD Primary Care Provider [phone] Allergies No known active allergies Medications MedicationSigDispense QuantityRefillsLast FilledStart DateEnd DateStatus [facility] Mucus Extended Release 600 MG 12 hr tablet Take 600 mg by mouth in the morning and 600 mg before bedtime.07/16/2024ctive cefuroxime (Ceftin) 250 MG tablet Take 250 mg by mouth in the morning and 250 mg before bedtime.09/16/2023ctive albuterol HFA 90 mcg/act inhaler inhale 1 to 2 puffs by mouth and INTO THE LUNGS three times a day if needed 11/19/2023ctive buPROPion SR (Wellbutrin SR) 100 MG 12 hr tablet Take 100 mg by mouth Do not crush, chew, or split.Active escitalopram (Lexapro) 10 MG tablet Take 10 mg by mouth in the morning.09/07/2025Discontinued Encounters DateTypeDepartmentCare ZagaWaujzmxefje59/03/2025 3:50 PM ESTOffice Visit [facility] [address] [place] [address] Annel Douglas PA Well woman exam with routine gynecological exam; Encounter for screening mammogram for malignant neoplasm of breast; Vaginal dtskvulcf18/03/2025amboo flowsheet [facility] [address] [place] [address] Annel Douglas PA from Last 3 Months Family History Medical HistoryRelationNameCommentsHeart diseaseFatherHyperlipidemiaFather HypertensionFatherBreast cancerFather's SisterHeart diseaseMaternal Grandmother HypertensionMaternal GrandmotherHeart diseaseMotherHyperlipidemiaMother HypertensionMotherHeart diseasePaternal GrandfatherStrokePaternal Grandfather CancerPaternal GrandmotherHeart diseasePaternal GrandmotherHyperlipidemia Paternal GrandmotherHypertensionPaternal GrandmotherBreast cancerSisterRelation NameStatusCommentsFatherFather's SisterMaternal GrandmotherMotherPaternal GrandfatherPaternal GrandmotherSister2 Social History Tobacco UseTypesPacks/DayYears UsedDateSmoking Tobacco: Never Tobacco Cessation:Counseling Given: Not Answered Alcohol UseStandard Drinks/WeekCommentsNot Asked0 (1 standard drink = 0.6 oz pure alcohol)occasionalCommentsNoSex and Gender InformationValueDate RecordedSex Assigned at BirthNot on fileLegal QcnDnfmco86/15/2023 11:47 PM EDT Gender IdentityNot on fileSexual OrientationNot on file Last Filed Vital Signs Vital SignReadingTime TakenCommentsBlood Nskimsmr143/8209/07/2025 4:30 PM EST Pulse--Temperature--Respiratory Rate--Oxygen Saturation--Inhaled Oxygen Concentration--Khohts998 kg (224 lb 1.9 oz)09/07/2025 4:30 PM WPZUcdacp709.2 cm (5' 7 )04/05/2024 3:04 PM EDTBody Mass Index35. 3:04 PM EDT Plan of Treatment DateTypeDepartmentCare Team (Latest Contact Info)Chjqsvidoty89/21/2026 4:00 PM ESTProcedure Visit [facility] [address] [place] [address] Tato Harding, [address] [place] [address] Health MaintenanceDue DateLast DoneCommentsCOVID-19 Vaccine ( season) , 11/29/2020Influenza Vaccine (#1)2025Mammogram 604/, 01/13/2024, 3Cervical Cancer Rangizwhi49/04/2029 HPV/Nlcszl0708/09/2029Pap Smear, 3Pneumococcal Vaccine: Pediatrics (0 to 5 Years) and At-Risk Patients (6 to 64 Years)Aged Out No longer eligible based on patient's age to complete this topic Procedures Procedure NamePriorityDate/TimeAssociated DiagnosisCommentsMM TOMOSYNTHESIS SCREENING BI01/17/2025 3:53 PM EDT PAP UMWNCNfsgszx36/04/2024 12:00 AM ESTfrom Last 3 Months or Most Recently Relevant to Health Maintenance Results * MM TOMOSYNTHESIS SCREENING BI (01/17/2025 3:53 PM EDT)Anatomical Region LateralityModalityOtherSpecimen (Source)Anatomical Location / Laterality Collection Method / VolumeCollection TimeReceived Time01/17/2025 3:53 PM EDT Narrative 01/17/2025 3:54 PM EDT [facility] ?[address] ? [place] [address] ? Mammography Report ? Signed ? Patient: COVERT,DAVINA R ?MR#: [id number] ?? : 1985 ?Acct:[id number] ?? Age/Sex: 39 / F ?ADM Date: 01/17/25 ?? Loc: MAMMO ? Attending Dr: Tato Lion.Margaret ? Ordering Physician: Tato Harding D.O. ?Results: ? Date of Service: 01/17/25 ?Follow Up: ? Procedure(s): MM tomosynthesis screening BI ?? Accession Number(s): [id number] ? cc: Tato Harding D.O.; Physician,Non-Staff M.D. ? Patient Name: ? DAVINA COVERT ? MR#: [id number] ? : 1985 ? Exam Date: 01/17/2025 ?? Ordering Doctor: DR Tato Harding . ? RADIOLOGY REPORT ? PROCEDURE: ? MM TOMOSYNTHESIS SCREENING BI ? COMPARISON: ? MM TOMOSYNTHESIS SCREENING BI, 01/12/2024. ??MG MAMM SCREEN 3D ?? MANDIE CAD, 01/10/2023. ??MG MAMM SCREEN 3D MANDIE CAD, 01/01/2022. ??MG MAMM SCREEN MANDIE ?? W CAD, 11/01/2020. ? INDICATIONS: ? Screening ? Calculator Name ? NCI Breast Cancer Risk Assessment Tool ?? 5 Year Breast Cancer Risk ? 1.20% ?? Lifetime Breast Cancer Risk ? 18.60% ?? Personal Breast Cancer ?No ?? Personal Ovarian Cancer ? No ?? Treatments ? None ?? Family Cancers ? Grandmother-paternal with breast cancer at age 42; Sister ?? with breast cancer at age 37; Cousin-paternal with breast cancer at age 43; ?? Aunt-maternal with breast cancer at age ??38. ? LOCATION: ? [facility] ? BREAST COMPOSITION: ? The breasts are almost entirely fatty. ? FINDINGS: ? DIAGNOSTIC CATEGORY 1--NEGATIVE. ? RIGHT BREAST: ??No significant suspicious finding. ? LEFT BREAST: ??No significant suspicious finding. ? RECOMMENDATIONS: ? ROUTINE MAMMOGRAM AND CLINICAL EVALUATION IN 12 MONTHS. ? PLEASE NOTE: ??A NORMAL MAMMOGRAM DOES NOT EXCLUDE THE POSSIBILITY OF BREAST ?? CANCER. ??A CLINICALLY SUSPICIOUS PALPABLE LUMP SHOULD BE BIOPSIED. ? Dictated by: Nima Flaherty DO on 01/17/2025 at 15:52 ? Approved by: Nima Flaherty DO on 01/17/2025 at 15:53 ? Dictated By: ?Nima Flaherty M.D. ? Signed By: ?01/17/251553 ? DD/ 52 ? TD/TT: ? Salad Counter Attendant: Procedure Note Radiology, Radiologist, MD - 01/17/20[address] [place] [address] Mammography Report Signed Patient: DAVINA SANTAMARIA RMR#: [id number] : 1985Acct:[id number] Age/Sex: 39 / FADM Date: 01/17/25 Loc: MAMMO Attending Dr: Tato Harding D.O. Ordering Physician: Tato Harding D.O.Results: Date of Service: 01/17/25Follow Up: Procedure(s): MM tomosynthesis screening BI Accession Number(s): [id number] cc: Tato Harding D.O.; Physician,Non-Staff Lynn Patient Name: DAVINA SANTAMRAIA MR#: [id number] : 1985 Exam Date: 01/17/2025 Ordering Doctor: DR Tato Harding . RADIOLOGY REPORT PROCEDURE: MM TOMOSYNTHESIS SCREENING BI COMPARISON: MM TOMOSYNTHESIS SCREENING BI, 01/12/2024. MG MAMM OYGVEL5K MANDIE CAD, 01/10/2023. MG MAMM SCREEN 3D MANDIE CAD, 01/01/2022. MG MAMM SCREENBIL W CAD, 11/01/2020. INDICATIONS: Screening Calculator Name NCI Breast Cancer Risk Assessment Tool 5 Year Breast Cancer Risk 1.20% Lifetime Breast Cancer Risk 18.60% Personal Breast Cancer No Personal Ovarian Cancer No Treatments None Family Cancers Grandmother-paternal with breast cancer at age 42;Sister with breast cancer at age 37; Cousin-paternal with breast cancer at age43; Aunt-maternal with breast cancer at age 38. LOCATION: [facility] BREAST COMPOSITION: The breasts are almost entirely fatty. FINDINGS: DIAGNOSTIC CATEGORY 1--NEGATIVE. RIGHT BREAST: No significant suspicious finding. LEFT BREAST: No significant suspicious finding. RECOMMENDATIONS: ROUTINE MAMMOGRAM AND CLINICAL EVALUATION IN 12 MONTHS. PLEASE NOTE: A NORMAL MAMMOGRAM DOES NOT EXCLUDE THE POSSIBILITY OFBREAST CANCER. A CLINICALLY SUSPICIOUS PALPABLE LUMP SHOULD BE BIOPSIED. Dictated by: Nima Flaherty DO on 01/17/2025 at 15:52 Approved by: Nima Flaherty DO on 01/17/2025 at 15:53 Dictated By: Nima Flaherty M.D. Signed By:01/17/25 1554 DD/ 1553 TD/TT: Salad Counter Attendant: Authorizing ProviderResult TypeResult StatusCorey Mehdi DOCLINISYNC IMAGINGFinal Result * Pap Smear (08/09/2024 12:00 AM EST)Specimen (Source)Anatomical Location / LateralityCollection Method / VolumeCollection TimeReceived TimeSwabCervical swab / Unknown Narrative Authorizing ProviderResult TypeResult StatusAmy Misael PAL CYTOLOGY ORDERABLES Final ResultPerforming OrganizationAddressCity/State/ZIP CodePhone Number EXTERNAL LAB from Last 3 Months or Most Recently Relevant to Health Maintenance Insurance Care Teams Team MemberRelationshipSpecialtyStart DateEnd Montana Gill MD [address] [place] [address] PCP - GeneralFamily Jamnyezj38/18/23
--- OUTSIDE RECORDS SUMMARY | 2025-09-07 19:28 | XMS_ITS | Clinical Summary ---
Author Organization [facility] tem Address [id number] [address] [place] [address] Care Team Providers Care Retirement Actuary Name Role Phone Unavailable Primary Care Provider Unavailabl e Social History Tobacco UseTypesPacks/DayYears UsedDateSmoking Tobacco: Never AssessedChildcare AnswerDate OkurnligBzfxhikgdIxqrblg45/10/2019EmploymentAnswerDate Recorded WnqdyctskoKwlnijv71/10/2019Purpose - LifeAnswerDate RecordedPurpose and direction in ikhvPugvgqk66/10/2021CommentsUnknownSex and Gender InformationValueDate RecordedSex Assigned at BirthNot on fileLegal SexFemale 05/09/2015 2:13 PM EDTGender IdentityNot on fileSexual OrientationNot on file Plan of Treatment Health MaintenanceDue DateLast DoneCommentsDepression Jhrijnpoo04/01/1995Tobacco Bdlbwhnyj09/01/1995Adult BMI Wnjvwnwwv11/01/2001DTaP,Tdap and Td Vaccines (1 - Tdap)2002Pap Smear2004Influenza Ivnqjtq0206/06/2025 Medical Devices Not on file Insurance
--- OUTSIDE RECORDS SUMMARY | 2025-09-07 19:28 | XMS_ITS | Patient Health Record ---
Author Organization [facility] Address [address] [place] [address] Care Team Providers Care Tray Line Worker Name Role Phone Jairo JARVIS, [place] Primary Care Provider Flavio Mariee [phone] Allergies No Known Allergies Reason For Referral No Information Medications Medication SIG (Take, Route, Frequency, Duration) Notes Start Date End Date Status Lexapro Active Social History Tobacco Use: Social History Observation Description Date Details (start date - stop date) Never Smoker NA - NA Smoking History Question Answer Notes Smoking Status NonSmoker Problems Problem Type SNOMED Code ICD Code Onset Dates Problem Status W/U Status Risk Notes Problem Closed fracture of m etatarsal bone (65498788) Closed displaced fracture of fifth metatarsal bone of right foot, initial encounter (S92.351A) ActiveconfirmedProblemEncounter for other orthopedic aftercare (Z47.89)Active confirmedProblemMetatarsal bone fracture (308897437)Displaced fracture of fifth metatarsal bone, right foot, subsequent encounter for fracture with routine healing (S92.351D)Activeconfirmed Plan Of Treatment No Information Insurance Providers Payer Name Payer Address Payer Phone Subscriber Number Group Number Insured Name Patient Relationship to Insured Coverage Start Date Coverage End Date [facility] [address] [place] [address] [id number] PRESLEY FONG Self - patient is the insured Medical (General) History Medical History History ICD Code Sleep apnea: No CPAP Machine: NoDo you use the CPAP machine? NoDo you have a pacemaker or AICD(automatic internal cardiac defibrillator)? NoLatex Allergy NoDrug Allergies: NoBariatric Surgery: NoSurgical History Surgery Date(Month/Year) ORIF of a right fifth metatarsal fractur e 05/27/2022
== END 2025-09-07 19:25 | disposition home or self-care (01) ==
LOC: LAB 19:24
PROVIDERS: Family Provider Family Medicine; Visit Provider Physician Assistant
DX: Z01.419 Encounter for gynecological examination (general) (routine) without abnormal findings (principal)
CPT/HCPCS: 87624; 88175